=== PATIENT | female | born 1970 | race Caucasian/White ===

== ENCOUNTER 2016-06-22 05:03 | Observation (INO) | payer BC, OTHER ==
[2016-06-02 09:35] VITALS: BMI 27.0
[2016-06-22] VITALS (15 sets, daily range): BP systolic 104–138; BP diastolic 73–79; PULSE 61–87; TEMP 36.1–37; O2SAT 92–97; Ht 175.3 cm; Wt 84.1 kg
[~2016-06-22] VITALS: Ht 175.3 cm; Wt 84.1 kg
[2016-06-22] MEDS ORDERED: ACET-1311 PO (05:53)
[2016-06-22] MEDS ORDERED: CeleBREX 200 MG CAP PO SCH (06:00)
[2016-06-22] MEDS ORDERED: CEFAZOLIN 2000 MG/60 ML D5W IV SCH (06:00)
[2016-06-22] MEDS ORDERED: LACTATED RINGER'S 1000ML 1,000 ML IV SCH (06:00)
[2016-06-22] MEDS ORDERED: PREGABALIN 75 MG CAP PO SCH (06:00)
[2016-06-22] MEDS ORDERED: SUCCINYLCHOLINE CHLORIDE 20 MG/ML 10 ML VIAL IV ONE (06:45)
[2016-06-22] MEDS ORDERED: GLYCOPYRROLATE INJ 0.2 MG/ML VIAL ONE (06:45)
[2016-06-22] MEDS ORDERED: ROCURONIUM BROMIDE 10 MG/ML 5 ML VIAL ONE (06:45)
[2016-06-22] MEDS ORDERED: ONDANSETRON INJ 2 MG/ML 2 ML VIAL ONE (06:45)
[2016-06-22] MEDS ORDERED: DEXAMETHASONE SOD INJ 4 MG/ML VIAL ONE (06:45)
[2016-06-22] MEDS ORDERED: FENTANYL CITRATE INJ 50 MCG/1 ML 2 ML VIAL ONE ×3 (06:45→09:22)
[2016-06-22] MEDS ORDERED: PROPOFOL IV EMULSION 10 MG/ML 20 ML VIAL IV ONE (06:45)
[2016-06-22] MEDS ORDERED: EpHEDrine SULFATE INJ 50 MG/ML AMP ONE (06:45)
[2016-06-22] MEDS ORDERED: PHENYLEPHRINE HCL INJ 10 MG/ML VIAL ONE (06:45)
[2016-06-22] MEDS ORDERED: LIDOCAINE HCL 2% 2 ML VIAL (20MG/ML) ONE (06:45)
[2016-06-22] MEDS ORDERED: NEOSTIGMINE METHYLSULFATE 5 MG/5 ML SYR ONE (06:45)
[2016-06-22] MEDS ORDERED: MIDAZOLAM HCL 1 MG/ML 2ML VIAL ONE (06:45)
[2016-06-22] MEDS ORDERED: ONDANSETRON INJ 2 MG/ML 2 ML VIAL IV PRN ×2 (07:00→09:15)
[2016-06-22] MEDS ORDERED: ATROPINE SULFATE 0.1 MG/ML 5ML SYR IV PRN (07:00)
[2016-06-22] MEDS ORDERED: EpHEDrine SULFATE INJ 50 MG/ML AMP IV PRN (07:00)
[2016-06-22] MEDS ORDERED: MoRPHine SULFATE 10 MG/ML CARP/VIAL IV PRN (07:00)
[2016-06-22] MEDS ORDERED: BACITRACIN 50000 UNIT VIAL ONE (07:02)
[2016-06-22] MEDS ORDERED: THROMBIN 5000 UNITS KIT ONE (07:02)
--- NOTE | 2016-06-22 07:22 | History and Physical ---
History & Physical Date Jun 22, 2016. Chief Complaint neck pain and L arm pain/numbness History of Present Illness The patient is a 45 year old female with complaints of above for years. MRI shows cervical stenosis C4-6. No myelopathic symptoms. failed outpatient treatment. no weakness. Past Medical/Surgical History shoulder surgery BTL UE periph neuropathy smoker Additional History Hepatic Disease: No Endocrine Disorder: No Kidney Disease: No Hypertension: No Heart Disease: No Bleeding Tendencies: No Infectious Diseases: No Allergies Coded Allergies: Amitriptyline (Verified Allergy, Mild, CHRONIC FATIGUE, 06/22/16) Ibuprofen (Verified Allergy, Mild, VOMIT, 06/22/16) Sumatriptan (Verified Allergy, Mild, HEART RACES, 06/22/16) Home Medications Scheduled Acetaminophen (Tylenol), 650 MG PO prn Physical Examination Skin: warm/dry Eyes: normal inspection, sclerae normal ENT: normal ENT inspection Head: normocephalic, atraumatic Neck: supple, trachea midline Respiratory/Chest: lungs clear, no respiratory distress Cardiovascular: regular rate, rhythm Back: normal inspection Extremities: normal inspection Neurologic/Psych: no motor/sensory deficits, alert, normal reflexes, oriented x 3 Diagnosis C4-6 stenosis/DDD Plan of Treatment C4-6 ACDF
[2016-06-22] MEDS ORDERED: LARYING-O-JET KIT (LTA) EXT ONE ×2 (08:10)
[2016-06-22] MEDS ORDERED: FLOSEAL HEMOSTATIC MATRIX 5ML TOP ONE (09:03)
--- NOTE | 2016-06-22 09:03 | [facility] Post Operative Brief Note ---
Immediate Operative Summary Operative Date Jun 22, 2016. Pre-Operative Diagnosis C4 - C6 Stenosis; Degenerative Disc Disease Post-Operative Diagnosis C4 - C6 Stenosis; Degenerative Disc Disease Procedure(s) Performed C4-C6 Anterior Cervical Discectomy and Fusion with PEEK Surgeon Dr. Paco Graff Installer Apprentice Surgeon(s) Cristóbal Feliz PA-C Estimated Blood Loss 10ML Findings dict Specimens none per surgeon Dr. Paco Graff
[2016-06-22] MEDS ORDERED: OXYC-57 PO (09:13)
--- NOTE | 2016-06-22 09:14 | Discharge Instructions ---
Discharge Instructions Admission Reason for Admission: Cervical Spinal Stenosis Discharge Discharge Diagnosis / Problem: cervical stenosis Discharge Goals Goal(s): Decrease discomfort, Improve function, Increase independence Activity Recommendations Activity Limitations: as noted below Lifting Limitations: no more than 5 pounds Exercise/Sports Limitations: until after follow-up appointment May Resume Sexual Activity: after follow-up appointment Shower/Bathe: may shower/bathe in 3 days . Instructions / Follow-Up Instructions / Follow-Up ACTIVITY RECOMMENDATIONS: SELF CARE INSTRUCTIONS AFTER CERVICAL FUSIONS 1. No smoking. Smoking drastically decreases the chance of a solid fusion. 2. No bending, lifting more than 5 pounds, or twisting (roll like a log when turning in bed). 3. You may shower 3 days after surgery. Thoroughly dry wound. Do not soak in the tub. 4. Cervical collar: Must be worn at all times including sleeping. You may remove the brace only to bath, eat and if you are sitting in a recliner. 5. Please walk as much as you can for exercise. Gradually increase the distance that you walk as your endurance increases. SPECIAL CARE INSTRUCTIONS: VERY IMPORTANT TO READ AND REVIEW A. Do not take any anti-inflammatory medications (i.e. Indocin, Advil, Aspirin, Naprosyn, Aleve, Motrin, etc.) as these may inhibit the chance of a solid fusion. Tylenol is okay to take. B. Your surgical incision has been closed with a cosmetic suture under the skin that will dissolve in about 6 weeks. In 14 days, you can use a pair of clean scissors and cut the suture that is left outside of the skin at the ends of your incision. C. Complications are uncommon, but please contact us if you have any signs or symptoms of: 1. wound infection (fever higher than 102.5 degrees F, redness, separation of wound, drainage, or increasing pain from the incision) 2. blood clots in legs (pain, swelling, redness and warmth in legs) 3. urinary tract infection (fever higher than 102.5 degrees, burning upon urination or increased frequency of urination) 4. nerve problems (inability to walk on your toes or heels, numbness, loss of bowel or bladder control) 5. any other symptoms that concern you. D. Please call the office at if you have any concerns or questions about your operation or recovery. MANAGING PAIN AFTER SPINAL SURGERY 1. Narcotic medication is intended for short-term use and will be provided for surgical pain. Surgical pain usually lasts for a period of 4-6 weeks. Narcotic medication includes Percocet, Vicodin, Darvocet, Tylenol #3 or Lortab. 2. Longer-term pain is more appropriately treated with non-narcotic medication such as Tylenol ES. 3. Muscle spasm is not appropriately treated with narcotics. Muscle relaxers such as Soma, Flexeril or Skelaxin can be used along with Tylenol ES. 4. Remember that we all live with some "aches and pains". This is not unusual or uncommon after an injury or as we get older. 5. We will provide appropriate medication within the normal guidelines of their prescribed use. We will also be very cautious and aware of potential abuse and extended duration of patients' medication needs. 6. Please allow 2-3 days to process refills. Prescriptions will not be mailed but must be picked up at the office. FOLLOW UP VISIT: Keep your scheduled follow-up appointment. Any questions, please call the office at . Current Hospital Diet Patient's current hospital diet: Clear Liquid Diet Discharge Diet Recommended Diet: Regular Diet Procedures Procedures Performed: C4-C6 Anterior Cervical Discectomy and Fusion with PEEK Pending Studies Studies pending at discharge: no Medical Emergencies . Who to Call and When: Medical Emergencies: If at any time you feel your situation is an emergency, please call 911 immediately. . Non-Emergent Contact Non-Emergency issues call your: Surgeon Call Non-Emergent contact if: temperature is above 101, your pain is not controlled, your pain is worsening, your pain is unusual for you, your pain is concerning you, wound has increased drainage, wound has increased redness, wound has increased pain, you have any medication questions . "Provider Documentation" section prepared by Kendall Feliz. VTE Core Measure Inpt VTE Proph given/why not?: Sara Hernandez
[2016-06-22] MEDS ORDERED: ACETAMINOPHEN IV 1,000 MG in EMPTY BAG 0 ML IV PRN (09:15)
[2016-06-22] MEDS ORDERED: LORAZEPAM INJ 0.5 MG in SYRINGE 0.75 ML IV PRN (09:15)
[2016-06-22] MEDS ORDERED: RACEPINEPHRINE 2.25% NEBU SOLN 0.5 ML VIAL INH PRN (09:15)
[2016-06-22] MEDS ORDERED: NALOXONE HCL 0.4 MG/1 ML VIAL/CARP IV PRN (09:15)
[2016-06-22] MEDS ORDERED: LORAZEPAM 0.5 MG TAB PO PRN (09:15)
[2016-06-22] MEDS ORDERED: DEXAMETHASONE INJ 8 MG in SYRINGE 0 ML IV PRN (09:15)
[2016-06-22] MEDS ORDERED: HYDROmorphone INJ 1 MG/ML SYR IV PRN (09:15)
[2016-06-22] MEDS: FENTANYL CITRATE INJ 50 MCG/1 ML 2 ML VIAL IV PRN ×4 (09:40→10:10)
--- NOTE | 2016-06-22 09:43 | DIAGNOSTIC IMAGING REPORT ---
INTRAOPERATIVE FLUOROSCOPIC IMAGES OF THE CERVICAL SPINE CLINICAL HISTORY: ACDF C4-6 COMPARISON STUDY: MRI the cervical spine May 12, 2016. Fluoroscopy time: 14.6 seconds. FINDINGS: 2 fluoroscopic images demonstrate findings consistent with C4-C5 and C5-C6 anterior discectomy and fusion. Hardware is intact. Endotracheal and nasogastric tubes are partially imaged. Surgical drain is in place. IMPRESSION: Expected findings following C4-C6 anterior discectomy and fusion. Electronically signed by: Lincoln Gomez M.D. 06/22/2016 9:41 AM Dictated Date/Time: 06/22/2016 9:40 AM
--- NOTE | 2016-06-22 10:08 | OPERATIVE REPORT ---
DATE OF OPERATION: 06/22/2016 PREOPERATIVE DIAGNOSES: 1. Cervical stenosis C4-C5 and C5-C6. 2. Cervical disc degeneration C4-C5 and C5-C6. POSTOPERATIVE DIAGNOSIS: Same. PROCEDURES: 1. Anterior cervical discectomy and fusion with application of PEEK intervertebral spacer with local autograft and DBM putty C4-C5. 2. Anterior cervical discectomy and fusion with application of PEEK intervertebral spacer with local autograft and DBM putty C5-C6. 3. Anterior cervical instrumentation C4-C5 and C5-C6 with LDR anterior cervical blade plates. SURGEON: Dr. Graff. CHEMICAL LABORATORY ASSISTANT: Kendall Feliz PA-C. Please note he participated in all portions of the procedure and was critical for performance of procedure, participated in positioning, prepping, draping, retraction and wound closure. ANESTHESIA: General endotracheal anesthesia. COMPLICATIONS: None. ESTIMATED BLOOD LOSS: Minimal. OPERATION AND FINDINGS: PROCEDURE: After identification of patient and operative level, she was brought to the OR where she underwent induction of general anesthesia. She was then positioned supine on the [facility] OR table with all bony prominences well padded. The arms were tucked at sides and well padded. Shoulders were taped distally and the anterior neck was sterilely prepped and draped in usual fashion. Antibiotics were administered. Time-out was performed. Level was confirmed and transverse skin incision was made on the right side of the neck at the level of the cricoid cartilage. I divided the platysma in line with the incision and performed routine anterior cervical exposure with blunt dissection. I identified the presumptive disc spaces with fluoroscopy and marked level with electrocautery and mobilized the longus colli. I placed a self-retaining cervical retractor and then put Ionia pins in the bodies of C4 and C6. Distraction was applied. Level was reconfirmed with fluoroscopy. I then proceeded to do a complete discectomy at C4-C5 and complete discectomy at C5-C6. I took down the posterior osteophytes with a cristian at each level and then removed posterior annulus and PLL at each level. Foraminotomies were performed as necessary and I palpated the nerve roots were decompressed bilaterally. I then decorticated the endplates at C4-C5 and C5-C6 with a high speed cristian and then determined graft size with trial sizers. PEEK cages were filled with local bone and DBM putty, tamped into position at C4-C5 and C5-C6. I then released the distraction and placed the blade plates into each of the cages to anchor them in the vertebral bodies of C4-C5 and C5-C6. I then irrigated with bacitracin solution, obtained final x-rays, confirmed hemostasis, removed the Ionia distraction, applied bone wax over the holes and then closed over a small round drain. All sponge and needle counts were correct at the end of the case. I attest to the content of the Intraoperative Record and any orders documented therein. Any exceptio ns are noted below.
--- NOTE | 2016-06-22 11:56 | Anesthesiology Progress Note ---
Anesthesia Post Op Note Date & Time Jun 22, 2016 at 11:56 Vital Signs Pain Intensity: 1 Vital Signs Past 12 Hours Date Time Temp Pulse Resp B/P Pulse Ox O2 Delivery O2 Flow Rate FiO2 06/22/16 11:31 66 20 06/22/16 11:31 66 20 98 06/22/16 11:28 126/88 06/22/16 11:26 60 18 98 06/22/16 11:26 59 18 06/22/16 11:23 128/92 06/22/16 11:21 67 18 98 06/22/16 11:21 72 18 06/22/16 11:18 149/69 06/22/16 11:16 60 14 06/22/16 11:16 64 14 100 06/22/16 11:13 130/79 06/22/16 11:11 55 17 98 06/22/16 11:11 56 17 06/22/16 11:08 135/84 06/22/16 11:06 60 18 98 06/22/16 11:06 60 18 06/22/16 11:05 36.5 70 17 06/22/16 11:05 71 17 99 06/22/16 11:03 120/72 06/22/16 11:00 62 18 06/22/16 11:00 61 18 98 06/22/16 10:58 123/87 06/22/16 10:55 60 16 06/22/16 10:55 59 16 98 06/22/16 10:53 129/85 06/22/16 10:50 59 19 06/22/16 10:50 59 19 98 06/22/16 10:48 117/85 06/22/16 10:45 58 9 06/22/16 10:45 58 9 96 06/22/16 10:43 128/89 06/22/16 10:40 54 12 06/22/16 10:40 54 12 95 06/22/16 10:39 140/76 06/22/16 10:35 67 17 06/22/16 10:35 65 17 98 06/22/16 10:34 138/98 06/22/16 10:30 78 18 06/22/16 10:30 74 18 96 06/22/16 10:28 135/84 06/22/16 10:25 59 16 98 06/22/16 10:25 59 16 06/22/16 10:23 121/91 06/22/16 10:20 59 18 98 06/22/16 10:20 60 18 06/22/16 10:19 64 14 99 06/22/16 10:19 63 14 06/22/16 10:18 118/80 06/22/16 10:14 59 19 06/22/16 10:14 58 19 97 06/22/16 10:13 128/73 06/22/16 10:09 76 16 96 06/22/16 10:09 73 16 06/22/16 10:08 130/79 06/22/16 10:04 57 21 06/22/16 10:04 56 21 97 06/22/16 10:03 122/87 06/22/16 09:59 91 16 99 06/22/16 09:59 88 16 06/22/16 09:58 137/88 06/22/16 09:54 83 18 06/22/16 09:54 84 18 100 06/22/16 09:53 120/76 06/22/16 09:50 Nasal Cannula 4 06/22/16 09:49 56 19 06/22/16 09:49 56 19 96 06/22/16 09:48 130/103 06/22/16 09:44 53 19 06/22/16 09:44 52 19 96 06/22/16 09:43 123/77 06/22/16 09:39 65 15 98 06/22/16 09:39 64 15 06/22/16 09:38 132/89 06/22/16 09:35 60 16 99 06/22/16 09:35 60 16 06/22/16 09:33 138/93 06/22/16 09:30 82 17 06/22/16 09:30 83 17 99 06/22/16 09:29 130/92 06/22/16 09:28 137/92 06/22/16 09:25 81 16 135/80 97 Mask 10 06/22/16 09:15 36.3 87 16 126/78 95 Mask 10 06/22/16 05:35 36.6 61 20 104/73 97 Room Air Notes Mental Status: alert / awake / arousable, participated in evaluation Pt Amnestic to Procedure: Yes Nausea / Vomiting: adequately controlled Pain: adequately controlled Airway Patency, RR, SpO2: stable & adequate BP & HR: stable & adequate Hydration State: stable & adequate Anesthetic Complications: no major complications apparent
[2016-06-22] MEDS ORDERED: MoRPHine SULFATE 10 MG/ML CARP/VIAL ONE (13:13)
[2016-06-22] MEDS ORDERED: IV FLUIDS COMPLETED PRN (14:15)
[2016-06-22] MEDS: SODIUM CHLORIDE 0.9% 1000ML 1,000 ML IV SCH ×2 (15:38→21:37)
[2016-06-22] MEDS: CHECK SCOPOLAMINE PATCH PLACEMENT SCH ×2 (15:39→23:22)
[2016-06-22] MEDS: DEXAMETHASONE INJ 6 MG in SYRINGE 0 ML IV SCH ×2 (15:39→23:22)
[2016-06-22] MEDS: CEFAZOLIN IV 1,000 MG in DEXTROSE 5% 50ML 50 ML IV SCH ×2 (15:39→23:21)
[2016-06-22] MEDS ORDERED: SCOPOLAMINE 1.5 MG TDSY TD SCH (16:00)
[2016-06-22] MEDS: OXYCODONE HCL IR 5 MG TAB (IMMEDIATE RELEASE) PO PRN ×2 (17:59→22:19)
[2016-06-22] MEDS ORDERED: NURSING VERBAL MED ORDER ONE (22:30)
[2016-06-22] MEDS: CALCIUM CARBONATE 500 MG CHEWABLE PO PRN (23:25)
[2016-06-22] MEDS ORDERED: ACETAMINOPHEN IV 100 ML IV PRN (23:30)
[2016-06-23] VITALS (9 sets, daily range): BP systolic 116–128; BP diastolic 66–76; PULSE 73–88; TEMP 36.8–37.2; O2SAT 93–96
[2016-06-23] MEDS: CALCIUM CARBONATE 500 MG CHEWABLE PO PRN ×2 (03:18→10:32)
[2016-06-23] MEDS: DEXAMETHASONE INJ 6 MG in SYRINGE 0 ML IV SCH (08:00)
[2016-06-23] MEDS: CHECK SCOPOLAMINE PATCH PLACEMENT SCH (08:00)
[2016-06-23] MEDS: CEFAZOLIN IV 1,000 MG in DEXTROSE 5% 50ML 50 ML IV SCH (08:42)
--- NOTE | 2016-07-06 09:22 | DISCHARGE SUMMARY ---
PRINCIPAL DIAGNOSIS: Included cervical stenosis C4-C5, cervical disc degeneration C4-C5, C5-C6. POSTOPERATIVE DIAGNOSIS: Same. PROCEDURE: ACDF C4-C5, C5-C6. SURGEON: Dr. Paco Graff. VALIDATION TECHNICIAN: Kendall Feliz PA-C. HISTORY OF PRESENT ILLNESS: Please refer to EMR. HOSPITAL COURSE: On 06/22/2016 Ms. Dunbar was admitted to [facility] with the above diagnosis. She was taken to preoperative holding where she was identified, evaluated and cleared for surgical procedure. She was transported to the operating room, introduced with general endotracheal anesthesia, sterile conditions were set and she successfully underwent the above procedure without complication or issue. She was awakened in stable and satisfactory condition and transported to postoperative recovery. Here her pain and vital signs were monitored and properly managed. There were no medical issues to note, the patient remained stable. She was then taken to the orthopedic floor for continued postoperative care. Throughout her stay, she had no difficulty breathing or swallowing. Incision remained intact. SIERRA was functioning. Immobilization was in place. Pain was well controlled. DVT and GI prophylactic measures were taken. There were no iatrogenic issues or postoperative surgical complications to note. She was evaluated on the morning of 06/23/2016 and indicated for return home. On this date, she was discharged from [facility]. DISPOSITION: Home. DISPOSITION CONDITION: Stable. NOTED COMPLICATIONS OR ISSUES: Zero. DISCHARGE INSTRUCTIONS: Please refer to EMR.
[2016-11-24] MEDS ORDERED: AMOX875T3 PO (08:51)
[2016-12-01] MEDS ORDERED: OXYC-57 PO (10:59)
== END 2016-06-23 12:19 | disposition home or self-care (01) ==
LOC: ENRESERVTM → ENRESERVDT → C.ACU 05:03 → C.3E 09:05
PROVIDERS: ADMIT Orthopaedic Surgery Orthopaedic Surgery of the Spine; ATTEND Orthopaedic Surgery Orthopaedic Surgery of the Spine
DX: M48.02 Spinal stenosis, cervical region (principal); M50.321 Other cervical disc degeneration at C4-C5 level; M50.322 Other cervical disc degeneration at C5-C6 level; G62.9 Polyneuropathy, unspecified; F17.210 Nicotine dependence, cigarettes, uncomplicated

== ENCOUNTER 2016-10-15 22:49 | Emergency (ER) | payer OTHER ==
[~2016-10-15] VITALS: Ht 175.3 cm; Wt 90.6 kg
[~2016-10-15 22:49] MED LIST: ACET-1311 PO; OXYC-57 PO
[2016-10-15 22:58] VITALS: TEMP 36.6; Ht 175.3 cm; Wt 90.6 kg
[2016-10-15] MEDS ORDERED: RANITIDINE HCL 150 MG TAB PO ONE (23:30)
--- NOTE | 2016-10-15 23:30 | EMERGENCY ROOM VISIT NOTE ---
History Report prepared by Cliveibmadhavi: Amanda Dunlap Under the Supervision of: Dr. Ekaterina Richards D.O. First contact with patient: 23:04 Chief Complaint: ILLNESS Stated Complaint: ALLERGIES, COUGHING, SWELLING OF EYES History of Present Illness The patient is a 46 year old female who presents to the Emergency Room with complaints of intermittent facial swelling starting a few days ago. She denies any facial pain. The patient reports having swelling of eyes, sinuses, and throat which only occurs at night. The swelling improves at night. She also complains of sinus drainage which results in coughing. She reports rib pain from coughing. She was evaluated at [facility] for her current symptoms and she was prescribed Augmentin without relief for suspected sinusitis. The patient recently discovered black mold in her house which is now being cleaned up. Her symptoms had initially improved when she was staying out of the house but she started having swelling today on her way to a hotel. She denies keeping her windows open but the air conditioner has been running in the house for the past few days. The patient does not take any medications. She denies any new medications. She did not use any new laundry detergents or wear any new clothes. She denies any hives or rashes. She is a current smoker. Source of History: patient Onset: a few days ago Position: other (Face) Quality: other (swelling) Timing: intermittent Modifying Factors (Relieving): other (Augmentin without relief) Associated Symptoms: + cough, No rash Review of Systems See HPI for pertinent positives & negatives. A total of 10 systems reviewed and were otherwise negative. Past Medical & Surgical Medical Problems: (1) Bronchitis (2) Bronchopneumonia (3) DDD (degenerative disc disease), cervical Family History Patient reports no known family medical history. Social History Smoking Status: Current Every Day Smoker Marital Status: Occupation Status: unemployed Current/Historical Medications Scheduled Methylprednisolone (Medrol Dosepak), 1 PKT PO UD Allergies Coded Allergies: Amitriptyline (Verified Allergy, Mild, CHRONIC FATIGUE, 10/15/16) Ibuprofen (Verified Allergy, Mild, VOMIT, 10/15/16) Sumatriptan (Verified Allergy, Mild, HEART RACES, 10/15/16) Physical Exam Vital Signs Date Time Temp Pulse Resp B/P (MAP) Pulse Ox O2 Delivery O2 Flow Rate FiO2 10/16/16 00:19 84 18 120/64 96 10/15/16 22:58 36.6 96 18 122/66 95 Room Air Physical Exam HEENT: Head - normocephalic and atraumatic Pupils are equal, round, and reactive to light. Extraocular eye muscles are intact, and sclera are anicteric. Eye lid edema. Nose - moist nasal mucosa without discharge. Mouth - moist buccal mucosa. Oropharynx is nonerythematous and there is no tonsillar exudate or edema noted. Neck: Supple; no JVD, nuchal rigidity, cervical lymphadenopathy. Heart: Regular rate and rhythm. There is a normal S1 and S2 with no murmurs, clicks, or gallops appreciated. Lungs: Clear to auscultation bilaterally with no wheezes, rales, or rhonchi. Lung sounds are diminished in all lung gonzalez. Abdomen: Soft, completely nontender, nondistended, with good bowel sounds. There are no palpable pulsatile masses or hepatosplenomegaly. There is no guarding, rigidity, or rebound noted. Extremities: No evidence of cyanosis, clubbing, or edema. There are easily palpable peripheral pulses. Skin: warm and dry with good turgor and no rashes. Medical Decision & Procedures ER Provider Diagnostic Interpretation: X-ray results as stated below per interpretation by me: TWO VIEW CHEST X-RAY No pulmonary infiltrate or consolidation. Medications Administered Medications (Trade) Dose Ordered Sig/Mannie Route Start Time Stop Time Status Last Admin Dose Admin Diphenhydramine HCl (Benadryl Cap) 50 mg NOW ONCE PO 10/15/16 23:30 10/15/16 23:31 DC 10/15/16 23:30 50 MG Ranitidine HCl (zANTac TAB) 150 mg NOW ONCE PO 10/15/16 23:30 10/15/16 23:31 DC 10/15/16 23:31 150 MG Procedure Ranitidine HCl 150 mg PO, Benadryl Cap 50 mg PO ED Course 2304: Past medical records reviewed. The patient was evaluated in room B04B. A complete history and physical exam was performed. I attest that I have personally reviewed the patient's current medication list. 2330: Ranitidine HCl 150 mg PO, Benadryl Cap 50 mg PO 0010: Upon reevaluation, the patient is feeling better. I discussed findings and results with her. She verbalized agreement of the treatment plan. She was discharged home. Patient was found to have an elevated blood pressure and was referred to their primary doctor for recheck and further treatment. The patient was encouraged to stop smoking. Medical Decision The patient presents to the Emergency Room with complaints of facial swelling. Differential diagnosis includes but is not limited to seasonal allergies, acute allergic reaction, sinusitis. We spent a great deal time talking about possible allergens or offending agents. The patient got moderate relief of her symptoms from Benadryl and Zantac. I did prescribe a Medrol Dosepak for the patient to start if she developed any worsening symptoms. Impression Primary Impression: Allergic reaction Scribe Attestation The scribe's documentation has been prepared under my direction and personally reviewed by me in its entirety. I confirm that the note above accurately reflects all work, treatment, procedures, and medical decision making performed by me. Departure Information Dispostion Home / Self-Care Prescriptions Methylprednisolone (MEDROL DOSEPAK) 4 Mg Nato 1 PKT PO UD for 6 Days, #1 PKT Prov: Ekaterina Richards D.O. 10/15/16 Referrals No Doctor, Assigned (PCP) Forms HOME CARE DOCUMENTATION FORM, IMPORTANT VISIT INFORMATION, WORK / SCHOOL INSTRUCTIONS Patient Instructions ED Allergic Reaction General Other, My [facility] Additional Instructions Take benadryl - 50mg every 6 hours take zantac - 75 mg every 6 hours along with the benadryl. If symptoms not improving, start steroid taper Go to the closest ER if you develop any worsening shortness of breath or allergy symptoms Problem Qualifiers Primary Impression: Allergic reaction Encounter type: initial encounter Qualified Codes: T78.40XA - Allergy, unspecified, initial encounter
--- NOTE | 2016-10-15 23:44 | DIAGNOSTIC IMAGING REPORT ---
TWO VIEW CHEST CLINICAL HISTORY: Cough. FINDINGS: PA and lateral chest radiographs are obtained. No prior studies are available for comparison at the time of dictation. The cardiomediastinal silhouette is unremarkable. Prominent epicardial pad is noted at the medial right lung base. There is minimal atelectasis at the left lung base. The lungs and pleural spaces are otherwise clear. There is no pneumothorax. The bony thorax appears intact. Orthopedic hardware is partially imaged in the lower cervical spine. IMPRESSION: No active disease in the chest. Electronically signed by: Henrik Mckeon M.D. 10/15/2016 11:43 PM Dictated Date/Time: 10/15/2016 11:42 PM
[2016-10-15] MEDS ORDERED: METH4PAK PO (23:54)
[2016-10-16 00:19] VITALS: BP 120/64; PULSE 84; O2SAT 96
[2016-11-24] MEDS ORDERED: AMOX875T3 PO (08:51)
[2016-12-01] MEDS ORDERED: OXYC-57 PO (10:59)
[2017-03-14] MEDS ORDERED: VNTHFA/IN INH (08:48)
== END 2016-10-16 00:20 | disposition home or self-care (01) ==
LOC: C.EDB 22:51
DX: T78.40XA Allergy, unspecified, initial encounter (principal); R22.0 Localized swelling, mass and lump, head; R05 Cough; R07.81 Pleurodynia; Z87.09 Personal history of other diseases of the respiratory system; F17.200 Nicotine dependence, unspecified, uncomplicated; X58.XXXA Exposure to other specified factors, initial encounter

== ENCOUNTER 2016-10-25 20:24 | Emergency (ER) | payer OTHER ==
[~2016-10-25] VITALS: Ht 175.3 cm; Wt 88.4 kg
[2016-10-25 20:35] VITALS: TEMP 36.8; Ht 175.3 cm; Wt 88.4 kg
--- NOTE | 2016-10-25 21:37 | DIAGNOSTIC IMAGING REPORT ---
CHEST ONE VIEW PORTABLE CLINICAL HISTORY: Atypical chest pain. Cough. COMPARISON STUDY: No previous studies for comparison. FINDINGS: The cardiac and mediastinal contours remain stable. There is a stable prominent right cardiophrenic angle fat pad. There is no failure. There is no lobar consolidation. There is stable left basilar atelectasis/scarring. No pleural effusions are visualized.[ IMPRESSION: No active disease in the chest. Electronically signed by: Varinder Avelar M.D. 10/25/2016 9:36 PM Dictated Date/Time: 10/25/2016 9:35 PM
[2016-10-25 21:53] LABS: HEMATOCRIT 43.3 % (37-47); MEAN CELL VOLUME 92.1 fL (80-100); MEAN CORPUSCULAR HEMOGLOBIN 30.6 pg (25-34); MEAN CORPUSCULAR HGB CONC 33.3 g/dl (32-36); MEAN PLATELET VOLUME 10.1 fL (7.4-10.4); PLATELET COUNT 234 K/uL (130-400); WHITE BLOOD COUNT 13.36 K/uL (4.8-10.8)
[2016-10-25 22:13] LABS: COMPLETE YES; LYMPH ABS # 6.16 K/uL (1.2-3.4); LYMPHOCYTE % 46.1 %; NEUTROPHILS % 37.4 %; VARIANT LYM ABS # 1.63 K/uL; VARIANT LYMPHOCYTE % 12.2 %
[2016-10-25 22:17] LABS: ALT/SGPT 55 U/L (12-78); BLOOD UREA NITROGEN 14 mg/dl (7-18); BUN/CREATININE RATIO 17.3 (10-20); CARBON DIOXIDE 24 mmol/L (21-32); CHLORIDE 108 mmol/L (98-107); GLUCOSE 97 mg/dl (70-99); POTASSIUM 3.8 mmol/L (3.5-5.1); SODIUM 143 mmol/L (136-145)
[2016-10-25 22:20] LABS: ALKALINE PHOSPHATASE 49 U/L (45-117); AST/SGOT 30 U/L (15-37)
[2016-10-25 22:26] LABS: CALCIUM 8.3 mg/dl (8.5-10.1)
[2016-10-26] MEDS ORDERED: AZITTAB PO (00:13)
[2016-10-26] MEDS ORDERED: AZITHROMYCIN 250 MG TAB PO ONE (00:15)
--- NOTE | 2016-10-26 00:19 | EMERGENCY ROOM VISIT NOTE ---
History Report prepared by Yaima: Tamar Feliciano Under the Supervision of: Dr. Pepe White M.D. First contact with patient: 21:07 Chief Complaint: COUGH Stated Complaint: COUGH THAT WONT GO AWAY Nursing Triage Summary: Pt has had a cough for the pt month. Pt was seen in the ED and was told she was having an allergic reaction. Pt was administered prednisone and has finished that treatement. Pt states that the cough has not gotten any better. Cough is productive at times with clear/white sputum. Pt still smokes daily. Pt also states she is having SOB. History of Present Illness The patient is a 46 year old female who presents to the Emergency Room with complaints of persistent cough starting 1 month ago. Her cough has not improved over the past month. She has pain in her right ribs which worsens when she exhales. She reports feeling a knot in her throat and feeling very congested. The knot in her throat seems to improve after she coughs up the congestion. She is coughing up a white sputum. She states that the problem seems to be in her throat and not in her lungs. She has been vomiting because she is coughing very hard. She was seen in the ED previously and was started and prednisone and Augmentin. She was told that it might be allergies. She has not been taking the Augmentin because it made her vomit. She has difficulty taking medications because they make her vomit. She has a history of H pylori. She reports left ear pain. She denies any chest pain, fever, itching, rash, or sore throat. She is not on any medications. She denies any history of diabetes, lung problems, environmental allergies, or heart problems. She is a smoker. She has recently been exposed to black mold in her house. Source of History: patient, family, spouse/significant other Onset: 1 month ago Position: other (global) Quality: other (cough) Timing: other (persistent) Associated Symptoms: + vomiting Note: Pt reports knot in throat, congestion, right rib pain. Review of Systems See HPI for pertinent positives & negatives. A total of 10 systems reviewed and were otherwise negative. Past Medical & Surgical Medical Problems: (1) Bronchitis (2) Bronchopneumonia (3) DDD (degenerative disc disease), cervical Old medical records were reviewed. Nurse's notes were reviewed and I agree with. Family History Patient reports no known family medical history. Social History Smoking Status: Current Every Day Smoker Marital Status: Occupation Status: unemployed Current/Historical Medications Scheduled Azithromycin (Zithromax Z-Nato), 0 PO UD Allergies Coded Allergies: Amitriptyline (Verified Allergy, Mild, CHRONIC FATIGUE, 10/25/16) Ibuprofen (Verified Allergy, Mild, VOMIT, 10/25/16) Sumatriptan (Verified Allergy, Mild, HEART RACES, 10/25/16) Nortriptyline (Unverified Allergy, Unknown, "WACKY/HEART RATE INCREASES", 10/25/16) Physical Exam Vital Signs Date Time Temp Pulse Resp B/P (MAP) Pulse Ox O2 Delivery O2 Flow Rate FiO2 10/26/16 00:40 65 20 121/77 97 Room Air 10/25/16 22:28 78 20 121/75 96 Room Air 10/25/16 20:44 95 Room Air 10/25/16 20:35 36.8 85 18 115/76 95 Room Air Physical Exam General: Non ill appearing middle age female. Well developed well nourished in no acute distress, breathing comfortably on room air. Normal speech HEENT: Normal cephalic atraumatic. Pupils are equal round and reactive to light. Extraocular movements are intact. Oropharynx is pink with moist mucous membranes. No swelling of the mouth lips or tongue. Neck: Supple with a midline trachea. No meningeal signs or stiffness, no JVD or bruits. No Stridor. Chest: Clear to auscultation bilaterally. No wheezes or rhonchi. No increased work of breathing. Tender to palpation in the right anterior ribs, no rash. Heart: regular rate and rhythm. Abdomen: Soft nontender, nondistended without rebound guarding or rigidity. Extremities: No cyanosis clubbing or edema. No calf tenderness or assymetry Spine/Back. Non tender to palpation. No CVA tenderness Skin: Good turgor without rashes. Neurologic exam: Cranial nerves two through 12 are intact. Motor and sensation are intact and symmetrical throughout. Medical Decision & Procedures ER Provider Diagnostic Interpretation: X-ray results as stated below per interpretation by me and the radiologist: CHEST ONE VIEW PORTABLE CLINICAL HISTORY: Atypical chest pain. Cough. COMPARISON STUDY: No previous studies for comparison. FINDINGS: The cardiac and mediastinal contours remain stable. There is a stable prominent right cardiophrenic angle fat pad. There is no failure. There is no lobar consolidation. There is stable left basilar atelectasis/scarring. No pleural effusions are visualized.[ IMPRESSION: No active disease in the chest. Electronically signed by: Varinder Avelar M.D. 10/25/2016 9:36 PM Dictated Date/Time: 10/25/2016 9:35 PM Laboratory Results 10/25/16 21:43 Red Blood Count 4.70, Mean Corpuscular Volume 92.1, Mean Corpuscular Hemoglobin 30.6, Mean Corpuscular Hemoglobin Concent 33.3, Mean Platelet Volume 10.1 10/25/16 21:43 Test 10/25/16 21:43 10/25/16 21:49 White Blood Count 13.36 K/uL (4.8-10.8) Red Blood Count 4.70 M/uL (4.2-5.4) Hemoglobin 14.4 g/dL (12.0-16.0) Hematocrit 43.3 % (37-47) Mean Corpuscular Volume 92.1 fL (80-100) Mean Corpuscular Hemoglobin 30.6 pg (25-34) Mean Corpuscular Hemoglobin Concent 33.3 g/dl (32-36) Platelet Count 234 K/uL (130-400) Mean Platelet Volume 10.1 fL (7.4-10.4) RDW Standard Deviation 42.4 fL (36.4-46.3) RDW Coefficient of Variation 12.5 % (11.5-14.5) Neutrophils % (Manual) 37.4 % Lymphocytes % (Manual) 46.1 % Variant Lymphocytes % (manual) 12.2 % Monocytes % (Manual) 4.3 % Neutrophils # (Manual) 5.00 K/uL (1.4-6.5) Total Absolute Neutrophils 5.00 K/uL (1.4-6.5) Lymphocytes # (Manual) 6.16 K/uL (1.2-3.4) Absolute Variant Lymphocytes 1.63 K/uL Total Absolute Lymphocytes 7.79 K/uL (1.2-3.4) Monocytes # (Manual) 0.57 K/uL (0.11-0.59) Red Blood Cell Morphology Unremarkable Anion Gap 11.0 mmol/L (3-11) Est Creatinine Clear Calc Drug Dose 105.3 ml/min Estimated GFR () 103.2 Estimated GFR (Non- 89.0 BUN/Creatinine Ratio 17.3 (10-20) Calcium Level 8.3 mg/dl (8.5-10.1) Total Bilirubin 0.2 mg/dl (0.2-1) Direct Bilirubin < 0.1 mg/dl (0-0.2) Aspartate Amino Transf (AST/SGOT) 30 U/L (15-37) Alanine Aminotransferase (ALT/SGPT) 55 U/L (12-78) Alkaline Phosphatase 49 U/L (45-117) Total Protein 6.9 gm/dl (6.4-8.2) Albumin 3.9 gm/dl (3.4-5.0) Lipase 153 U/L (73-393) Bedside Troponin I < 0.030 ng/ml (0-0.045) Laboratory studies as stated above per my review. Medications Administered Medications (Trade) Dose Ordered Sig/Mannie Route Start Time Stop Time Status Last Admin Dose Admin Azithromycin (Zithromax Tab) 500 mg NOW ONCE PO 10/26/16 00:15 10/26/16 00:16 DC 10/26/16 00:19 500 MG ECG Indication: chest pain Rate (beats per minute): 78 Rhythm: normal sinus Findings: no acute ischemic change, no ectopy ED Course 2109: Past medical records reviewed. The patient was evaluated in room B9, and a complete history and physical examination were performed. 2355: Upon reevaluation, the patient is resting comfortably. I discussed the results and treatment plan with her. She verbalized agreement of the treatment plan. The patient was discharged home. 0015: Azithromycin 500 mg PO. Medical Decision Differentials include, but are not limited to; bronchitis, pneumonia, allergies , pneumothorax, rib contusion, PE. Medication Reconciliation: I attest that I have personally reviewed the patient' s current medication list. Blood pressure Screening: Patient was found to have normal blood pressure on screening and does not require follow-up. This patient comes in as described above. She was placed in room B9. She's had a persistent cough and she has right rib pain that hurts worse with palpation movement and cough. she thinks she broke her rib from coughing. It is definitely reproducible. She's not hypoxemic. Chest x-ray was obtained and does not show anything pneumothorax or any definite rib fractures or pneumonia. EKG does not suggest acute coronary syndrome or arrhythmia and her symptoms would be atypical for cardiac disease. She has no acute electrolyte or metabolic abnormalities. Her symptoms are atypical for pulmonary embolism and she tells me she cannot have a CAT scan with contrast as she has severe reaction. She fact is allergic or sensitive to most medications. She believes she is azithromycin Z-Nato before I'll put her on this. I talked about pain and cough medicine she says she really can't take anything but Tyleno. L she does not do well with the oral pain medication or NSAIDs. I told her to ensure that she does not take too much Tylenol and do not take more than 2 pills every 6 hours and do not take with other acetaminophen/Tylenol products. She is going to use Robitussin-DM for cough. She's done okay with this before she should rest and drink plenty fluids return if: increasing pain, worsening symptoms, fever or chills, any new problems or concerns. She is happy with plan and discharged to home. Impression Primary Impression: Rib pain on right side Additional Impression: Bronchitis Scribe Attestation The scribe's documentation has been prepared under my direction and personally reviewed by me in its entirety. I confirm that the note above accurately reflects all work, treatment, procedures, and medical decision making performed by me. Departure Information Dispostion Home / Self-Care Prescriptions Azithromycin (ZITHROMAX Z-NATO) 250 Mg Tab 0 PO UD, #1 PKT Prov: Pepe White M.D. 10/26/16 Referrals No Doctor, Assigned (PCP) Forms HOME CARE DOCUMENTATION FORM, IMPORTANT VISIT INFORMATION Patient Instructions My [facility] Additional Instructions Rest Drink plenty of fluids Use azithromycin Z-Nato as directedantibiotic For pain may use Tylenol/acetaminophen a maximum of 2 pills every 6 hours Do not take with any other medications that contain Tylenol/acetaminophen For cough may use the Robitussin-DM Return if: Increasing pain, worsening of symptoms, shortness of breath, fever or chills, any new problems or concerns Problem Qualifiers
[2016-10-26 00:40] VITALS: BP 121/77; PULSE 65; O2SAT 97
[2016-11-24] MEDS ORDERED: AMOX875T3 PO (08:51)
[2016-12-01] MEDS ORDERED: OXYC-57 PO (10:59)
[2017-03-14] MEDS ORDERED: VNTHFA/IN INH (08:48)
== END 2016-10-26 00:40 | disposition home or self-care (01) ==
LOC: C.EDB 20:25
DX: R07.81 Pleurodynia (principal); J40 Bronchitis, not specified as acute or chronic; M50.90 Cervical disc disorder, unspecified, unspecified cervical region; F17.210 Nicotine dependence, cigarettes, uncomplicated

== ENCOUNTER 2016-10-29 12:49 | Emergency (ER) | payer OTHER ==
[~2016-10-29] VITALS: Ht 175.3 cm; Wt 88.2 kg
[~2016-10-29 12:49] MED LIST changes: -ACET-1311 PO; +AZITTAB PO; -OXYC-57 PO
[2016-10-29 12:51] VITALS: TEMP 36.4; Ht 175.3 cm; Wt 88.2 kg
[2016-10-29] MEDS ORDERED: FENTANYL CITRATE INJ 50 MCG/1 ML 2 ML VIAL IV STA (13:06)
[2016-10-29] MEDS ORDERED: PSEUDOEPHEDRINE HCL 30 MG TAB PO STA (13:06)
[2016-10-29] MEDS ORDERED: ACET-1256 PO (13:18)
--- NOTE | 2016-10-29 13:23 | EMERGENCY ROOM VISIT NOTE ---
History Report prepared by Yaima: Mariana Langley Under the Supervision of: Dr. Brittney Alatorre M.D. First contact with patient: 12:56 Chief Complaint: RIB PAIN Stated Complaint: CRACKED RIB,COUGH History of Present Illness The patient is a 46 year old female who presents to the Emergency Room with complaints of persistent right rib pain that started 1 month ago. The patient states that she is also experiencing a cough and sinus drainage that feels like it is getting stuck in her throat. The patient states that she has been treated with Augmentin, prednisone, and a z-pack, but nothing has improved her symptoms. The patient's adds that the sinus drainage causes the patient to gag and cough. The cough is what originally caused her rib pain. The patient states that she gags after eating or drinking and occasionally vomits after gagging. She states that she has only taken Tylenol for the pain and is hesitant to take anything else. The patient adds that she has had her esophagus dilated in the past. Source of History: patient Onset: 1 month ago Position: chest (right ribs) Quality: other (right rib pain) Timing: other (persistent) Associated Symptoms: + cough, + vomiting (after gagging) Note: sinus drainage, gagging Review of Systems See HPI for pertinent positives & negatives. A total of 10 systems reviewed and were otherwise negative. Past Medical & Surgical Medical Problems: (1) Bronchitis (2) Bronchopneumonia (3) DDD (degenerative disc disease), cervical Family History Patient reports no known family medical history. Social History Smoking Status: Current Every Day Smoker Marital Status: Occupation Status: unemployed Current/Historical Medications Scheduled Azithromycin (Zithromax Z-Nato), 0 PO UD Cefdinir (Omnicef), 1 CAP PO BID Scheduled PRN Acetaminophen (Tylenol), 500 MG PO Q8 PRN for Pain Albuterol Sulfate (Proventil Hfa), 2 PUFFS INH Q4H PRN for cough, wheeze Pseudoephedrine (Sudafed), 60 MG PO Q6 PRN for congestion Allergies Coded Allergies: Amitriptyline (Verified Allergy, Mild, CHRONIC FATIGUE, 10/29/16) Ibuprofen (Verified Allergy, Mild, VOMIT, 10/29/16) Sumatriptan (Verified Allergy, Mild, HEART RACES, 10/29/16) Nortriptyline (Verified Adverse Reaction, Unknown, "WACKY/HEART RATE INCREASES", 10/29/16) Physical Exam Vital Signs Date Time Temp Pulse Resp B/P (MAP) Pulse Ox O2 Delivery O2 Flow Rate FiO2 10/29/16 14:30 81 20 111/79 93 10/29/16 14:00 86 10/29/16 13:59 87 20 127/86 94 Room Air 10/29/16 12:51 36.4 87 20 124/86 94 Room Air Physical Exam Vital signs reviewed. General: Tearful, anxious-appearing female with a moist cough, in no significant distress, smells of tobacco. HEENT: No scleral icterus, PERRLA, neck supple. Atraumatic. Cardiovascular: Regular rate and rhythm, no extra sounds. Pulmonary: Clear to auscultation bilaterally, normal work of breathing. Abdomen: Soft, nontender, nondistended, positive bowel sounds. Musculoskeletal: Atraumatic, tender to right ribs along midaxillary line, no peripheral edema. Neurologic: Patient awake alert and oriented x 3, full strength in all 4 extremities. Cranial nerves 2 through 12 grossly intact. Skin: Warm, dry, no rash Medical Decision & Procedures ER Provider Diagnostic Interpretation: CT results as stated below per my review and radiologist interpretation: HEAD CT NONCONTRAST Findings: The paranasal sinuses and mastoid air cells are clear. The calvarium and skull base are intact. The ventricles and sulci are within normal limits. There is no mass, hematoma, midline shift, or acute infarct. Impression: No acute intracranial abnormality. Electronically signed by: Claus Pollack M.D. 10/29/2016 1:45 PM Dictated Date/Time: 10/29/2016 1:[address] FINDINGS: All major osseous structures are intact. There is minimal mucosal thickening of the lateral aspect right sphenoid sinus as well as central aspects of the ethmoid sinuses. There is minimal mucosal thickening of the posterior aspects of the maxillary sinuses. There is soft tissue occlusion of the left ostiomeatal unit. There is soft tissue narrowing on the right. The orbital margins appear to be intact. IMPRESSION: 1. Mild scattered mucosal thickening of the sphenoid and ethmoid sinuses. 2. This is seen to a lesser degree involving the maxillary sinuses. 3. Soft tissue occlusion left ostiomeatal unit. Soft tissue narrowing right ostiomeatal unit. Electronically signed by: Claus Pollack M.D. 10/29/2016 1:47 PM Dictated Date/Time: 10/29/2016 1:45 PM Laboratory Results 10/29/16 13:20 Red Blood Count 5.05, Mean Corpuscular Volume 92.3, Mean Corpuscular Hemoglobin 31.7, Mean Corpuscular Hemoglobin Concent 34.3, Mean Platelet Volume 10.3, Neutrophils (%) (Auto) 38.8, Lymphocytes (%) (Auto) 52.1, Monocytes (%) (Auto) 8.2, Eosinophils (%) (Auto) 0.4, Basophils (%) (Auto) 0.2, Neutrophils # (Auto) 4.43, Lymphocytes # (Auto) 5.95, Monocytes # (Auto) 0.93, Eosinophils # (Auto) 0.05, Basophils # (Auto) 0.02 10/29/16 13:20 Test 10/29/16 13:20 White Blood Count 11.41 K/uL (4.8-10.8) Red Blood Count 5.05 M/uL (4.2-5.4) Hemoglobin 16.0 g/dL (12.0-16.0) Hematocrit 46.6 % (37-47) Mean Corpuscular Volume 92.3 fL (80-100) Mean Corpuscular Hemoglobin 31.7 pg (25-34) Mean Corpuscular Hemoglobin Concent 34.3 g/dl (32-36) Platelet Count 241 K/uL (130-400) Mean Platelet Volume 10.3 fL (7.4-10.4) Neutrophils (%) (Auto) 38.8 % Lymphocytes (%) (Auto) 52.1 % Monocytes (%) (Auto) 8.2 % Eosinophils (%) (Auto) 0.4 % Basophils (%) (Auto) 0.2 % Neutrophils # (Auto) 4.43 K/uL (1.4-6.5) Lymphocytes # (Auto) 5.95 K/uL (1.2-3.4) Monocytes # (Auto) 0.93 K/uL (0.11-0.59) Eosinophils # (Auto) 0.05 K/uL (0-0.5) Basophils # (Auto) 0.02 K/uL (0-0.2) RDW Standard Deviation 41.9 fL (36.4-46.3) RDW Coefficient of Variation 12.5 % (11.5-14.5) Immature Granulocyte % (Auto) 0.3 % Immature Granulocyte # (Auto) 0.03 K/uL (0.00-0.02) Anion Gap 9.0 mmol/L (3-11) Est Creatinine Clear Calc Drug Dose 112.2 ml/min Estimated GFR () 111.6 Estimated GFR (Non- 96.3 BUN/Creatinine Ratio 14.9 (10-20) Calcium Level 8.9 mg/dl (8.5-10.1) Total Bilirubin 0.4 mg/dl (0.2-1) Direct Bilirubin < 0.1 mg/dl (0-0.2) Aspartate Amino Transf (AST/SGOT) 26 U/L (15-37) Alanine Aminotransferase (ALT/SGPT) 56 U/L (12-78) Alkaline Phosphatase 57 U/L (45-117) Total Protein 7.6 gm/dl (6.4-8.2) Albumin 4.2 gm/dl (3.4-5.0) Laboratory results per my review. Medications Administered Medications (Trade) Dose Ordered Sig/Mannie Route Start Time Stop Time Status Last Admin Dose Admin Pseudoephedrine HCl (Sudafed Tab) 60 mg NOW STAT PO 10/29/16 13:06 10/29/16 13:11 DC 10/29/16 13:27 60 MG Fentanyl Citrate (Fentanyl Inj) 50 mcg NOW STAT IV 10/29/16 13:06 10/29/16 13:11 DC 10/29/16 13:26 50 MCG Cefdinir (Omnicef Cap) 300 mg ONE STAT PO 10/29/16 13:52 10/29/16 13:53 DC 10/29/16 14:18 300 MG ED Course 1259: Past medical records reviewed. The patient was evaluated in room B9. A complete history and physical examination was performed. 1306: Ordered Fentanyl Citrate 50 mcg IV, Sudafed Tab 60 mg PO 1352: Ordered Prednisone Tab 60 mg PO, Cefdinir 300 mg PO 1407: Upon reevaluation, the patient appeared to have improvement of her symptoms. I discussed findings with her. She verbalized agreement of the treatment plan. She was discharged home. Medical Decision Differentials include sinusitis, pneumonia, pulmonary embolism, rib fracture, postnasal drip, pharyngitis, chronic sinusitis, COPD, chronic cough. Medication Reconciliation: I attest that I have personally reviewed the patient' s current medication list. Blood Pressure Screening: Patient was found to have a slightly elevated blood pressure due to circumstances. I do not believe that the patient requires hypertension monitoring. This patient was evaluated and appeared to be in no significant distress. IV access was obtained and laboratory work was drawn. The patient was placed on the qa consultant. She was given Sudafed 60 mg orally. Patient was given IV fentanyl for her headache. CT scan of the head and sinuses was performed and reveals mild mucosal thickening. Details are as above. The patient was placed on Omnicef 300 mg twice daily for 10 days. She will continue Sudafed as needed for congestion. The patient will use Tylenol as needed for pain and continue her albuterol as needed. She'll follow-up with her physician for reevaluation this week and return to the ER for worsening of symptoms or any medical concerns. [place] Drug Monitoring Program Search Results: patient reviewed within database, no issues identified Impression Primary Impression: Rib pain on right side Additional Impression: Sinusitis Scribe Attestation The scribe's documentation has been prepared under my direction and personally reviewed by me in its entirety. I confirm that the note above accurately reflects all work, treatment, procedures, and medical decision making performed by me. Departure Information Dispostion Home / Self-Care Prescriptions Albuterol Sulfate (Proventil Hfa) 108 Mcg/Act Aer 2 PUFFS INH Q4H Y for cough, wheeze for 5 Days, #1 INHALER Prov: Brittney Alatorre M.D. 10/29/16 Pseudoephedrine (Sudafed) 30 Mg Tab 60 MG PO Q6 Y for congestion, #30 TAB Prov: Brittney Alatorre M.D. 10/29/16 Cefdinir (OMNICEF) 300 Mg Cap 1 CAP PO BID for 10 Days, #20 CAP Prov: Brittney Alatorre M.D. 10/29/16 Referrals No Doctor, Assigned (PCP) Forms HOME CARE DOCUMENTATION FORM, IMPORTANT VISIT INFORMATION, WORK / SCHOOL INSTRUCTIONS Patient Instructions My [facility] Additional Instructions Diagnosis: Right rib pain, sinusitis Sudafed 60 mg every 6 hours as needed for congestion Tylenol 650 mg every 6 hours as needed for pain Omnicef 300 mg twice daily for 10 days. Drink plenty of fluids. Albuterol 2 puffs every 4 hours as needed for cough. Return to emergency for worsening of symptoms or any medical concerns. Problem Qualifiers Additional Impression:
--- NOTE | 2016-10-29 13:46 | DIAGNOSTIC IMAGING REPORT ---
HEAD CT NONCONTRAST CT DOSE: HISTORY: Headache headache, drainage TECHNIQUE: Multiaxial CT images of the head were performed without the use of intravenous contrast. Comparison: None. Findings: The paranasal sinuses and mastoid air cells are clear. The calvarium and skull base are intact. The ventricles and sulci are within normal limits. There is no mass, hematoma, midline shift, or acute infarct. Impression: No acute intracranial abnormality. Electronically signed by: Claus Pollack M.D. 10/29/2016 1:45 PM Dictated Date/Time: 10/29/2016 1:44 PM
--- NOTE | 2016-10-29 13:48 | DIAGNOSTIC IMAGING REPORT ---
MAXILLOFACIAL CT CT DOSE: 736.33 mGy.cm HISTORY: Pain sinus pressure, drainage TECHNIQUE: Multiaxial CT images of the maxillofacial region were performed and reformatted in the coronal plane without the use of contrast. COMPARISON: None. FINDINGS: All major osseous structures are intact. There is minimal mucosal thickening of the lateral aspect right sphenoid sinus as well as central aspects of the ethmoid sinuses. There is minimal mucosal thickening of the posterior aspects of the maxillary sinuses. There is soft tissue occlusion of the left ostiomeatal unit. There is soft tissue narrowing on the right. The orbital margins appear to be intact. IMPRESSION: 1. Mild scattered mucosal thickening of the sphenoid and ethmoid sinuses. 2. This is seen to a lesser degree involving the maxillary sinuses. 3. Soft tissue occlusion left ostiomeatal unit. Soft tissue narrowing right ostiomeatal unit. Electronically signed by: Claus Pollack M.D. 10/29/2016 1:47 PM Dictated Date/Time: 10/29/2016 1:45 PM
[2016-10-29 13:49] LABS: HEMATOCRIT 46.6 % (37-47); MEAN CELL VOLUME 92.3 fL (80-100); MEAN CORPUSCULAR HEMOGLOBIN 31.7 pg (25-34); MEAN CORPUSCULAR HGB CONC 34.3 g/dl (32-36); MEAN PLATELET VOLUME 10.3 fL (7.4-10.4); PLATELET COUNT 241 K/uL (130-400); RED BLOOD COUNT 5.05 M/uL (4.2-5.4); WHITE BLOOD COUNT 11.41 K/uL (4.8-10.8)
[2016-10-29] MEDS ORDERED: CEFDINIR 300 MG CAP PO STA (13:52)
[2016-10-29] MEDS ORDERED: CEFD300C2 PO (14:02)
[2016-10-29] MEDS ORDERED: PSEU30TA20 PO (14:04)
[2016-10-29] MEDS ORDERED: ALBUAER INH (14:05)
[2016-10-29 14:09] LABS: ALT/SGPT 56 U/L (12-78); AST/SGOT 26 U/L (15-37); BLOOD UREA NITROGEN 11 mg/dl (7-18); BUN/CREATININE RATIO 14.9 (10-20); CALCIUM 8.9 mg/dl (8.5-10.1); CARBON DIOXIDE 25 mmol/L (21-32); CHLORIDE 109 mmol/L (98-107); CREATININE 0.75 mg/dl (0.60-1.20); GLUCOSE 74 mg/dl (70-99); POTASSIUM 4.1 mmol/L (3.5-5.1); SODIUM 143 mmol/L (136-145)
[2016-10-29 14:11] LABS: ALKALINE PHOSPHATASE 57 U/L (45-117)
[2016-10-29 14:30] VITALS: BP 111/79; PULSE 81; O2SAT 93
[2016-10-29 14:37] LABS: BASO % 0.2 %; BASO ABS # 0.02 K/uL (0-0.2); COMPLETE YES; EOS % 0.4 %; IG% 0.3 %; LYMPH % 52.1 %; LYMPH ABS # 5.95 K/uL (1.2-3.4); MONO % 8.2 %; NEUT % 38.8 %
[2016-11-24] MEDS ORDERED: AMOX875T3 PO (08:51)
[2016-12-01] MEDS ORDERED: OXYC-57 PO (10:59)
[2017-03-14] MEDS ORDERED: VNTHFA/IN INH (08:48)
== END 2016-10-29 14:31 | disposition home or self-care (01) ==
LOC: C.EDB 12:50
DX: R07.81 Pleurodynia (principal); J32.9 Chronic sinusitis, unspecified; M50.90 Cervical disc disorder, unspecified, unspecified cervical region; F17.210 Nicotine dependence, cigarettes, uncomplicated

== ENCOUNTER 2016-11-26 20:01 | Emergency (ER) | payer OTHER ==
[~2016-11-26] VITALS: Ht 175.3 cm; Wt 76.5 kg
[~2016-11-26 20:01] MED LIST changes: +AMOX875T3 PO; -AZITTAB PO
[2016-11-26 20:05] VITALS: TEMP 36.8; Ht 175.3 cm; Wt 76.5 kg
[2016-11-26] MEDS ORDERED: MoRPHine SULFATE 10 MG/ML CARP/VIAL IV STA (20:29)
[2016-11-26] MEDS ORDERED: ONDANSETRON INJ 2 MG/ML 2 ML VIAL IV STA (20:29)
[2016-11-26] MEDS ORDERED: ACET-1256 PO (20:55)
[2016-11-26 20:59] LABS: BASO % 0.5 %; BASO ABS # 0.04 K/uL (0-0.2); COMPLETE YES; EOS % 1.1 %; HEMATOCRIT 42.4 % (37-47); IG% 0.1 %; LYMPH % 38.4 %; LYMPH ABS # 3.15 K/uL (1.2-3.4); MEAN CELL VOLUME 93.2 fL (80-100); MEAN CORPUSCULAR HEMOGLOBIN 31.6 pg (25-34); MEAN PLATELET VOLUME 10.7 fL (7.4-10.4); MONO % 8.2 %; NEUT % 51.7 %; PLATELET COUNT 221 K/uL (130-400); RED BLOOD COUNT 4.55 M/uL (4.2-5.4); WHITE BLOOD COUNT 8.21 K/uL (4.8-10.8)
[2016-11-26 21:26] LABS: BLOOD UREA NITROGEN 15 mg/dl (7-18); BUN/CREATININE RATIO 12.7 (10-20); CALCIUM 8.9 mg/dl (8.5-10.1); CARBON DIOXIDE 25 mmol/L (21-32); CHLORIDE 109 mmol/L (98-107); GLUCOSE 102 mg/dl (70-99); SODIUM 140 mmol/L (136-145)
--- NOTE | 2016-11-26 21:39 | DIAGNOSTIC IMAGING REPORT ---
RIGHT RIBS UNILATERAL WITH PA CHEST CLINICAL HISTORY: r rib pain 7-8 Right cough. Pain. COMPARISON STUDY: None FINDINGS: Cortical fractures of the right sixth, seventh, and 11th ribs. No evidence pneumothorax. Minimal right basilar atelectasis. IMPRESSION: Nondisplaced cortical fractures right sixth, seventh, and 11th ribs. No evidence pneumothorax. The above report was generated using voice recognition software. It may contain grammatical, syntax or spelling errors. Electronically signed by: Claus Pollack M.D. 11/26/2016 9:37 PM Dictated Date/Time: 11/26/2016 9:36 PM
[2016-11-26] MEDS ORDERED: OXYC1TAB3 PO (22:09)
[2016-11-26 22:25] VITALS: BP 138/78; PULSE 84; O2SAT 94
--- NOTE | 2016-11-27 00:42 | EMERGENCY ROOM VISIT NOTE ---
History Report prepared by Cliveibmadhavi: Naz Ying Under the Supervision of: Dr. Marcell Gallegos D.O. First contact with patient: 20:21 Chief Complaint: RIB PAIN Stated Complaint: RIB PAIN/COUGHING History of Present Illness The patient is a 46 year old female who presents to the Emergency Room with complaints of persistent rib pain for the past 2 days. She reports she has ongoing sinus issues for years and is scheduled to undergo sinus surgery this coming week, in approximately 5 days. She states due to the sinus drainage that she has experienced recently, she has been coughing up phlegm and earlier today , coughed so hard "she heard ribs crack". She rates her rib pain as a 10/10 in intensity. Any movement or breathing worsens her pain. Pt denies headache, change in vision, fevers, shortness of breath, nausea, vomiting, diarrhea, pain with urination, and melena. Source of History: patient Onset: past few weeks Position: chest Symptom Intensity: 10/10 Timing: other (persistent) Modifying Factors (Worsening): breathing, movement Associated Symptoms: + cough, No fevers, No headache, No chest pain, No SOB , No nausea, No vomiting, No melena, No diarrhea, No urinary symptoms Review of Systems See HPI for pertinent positives & negatives. A total of 10 systems reviewed and were otherwise negative. Past Medical & Surgical Medical Problems: (1) Bronchitis (2) Bronchopneumonia (3) DDD (degenerative disc disease), cervical Family History Patient reports no known family medical history. Social History Smoking Status: Current Every Day Smoker Alcohol Use: none Drug Use: none Marital Status: Housing Status: lives with family Occupation Status: unemployed Current/Historical Medications Scheduled Acetaminophen (Tylenol), 1,000 MG PO DAILY Amoxicillin (Amoxil), 1 TAB PO BID Scheduled PRN Oxycodone Immediate Rel Tab (Roxicodone Ir), 5 MG PO Q4H PRN for Severe Pain Allergies Coded Allergies: Amitriptyline (Verified Allergy, Mild, CHRONIC FATIGUE, 11/26/16) Ibuprofen (Verified Allergy, Mild, VOMIT, 11/26/16) Sumatriptan (Verified Allergy, Mild, HEART RACES, 11/26/16) Nortriptyline (Verified Adverse Reaction, Unknown, "WACKY/HEART RATE INCREASES", 11/26/16) Physical Exam Vital Signs Date Time Temp Pulse Resp B/P (MAP) Pulse Ox O2 Delivery O2 Flow Rate FiO2 11/26/16 22:25 84 20 138/78 94 11/26/16 20:05 36.8 86 18 132/83 97 Room Air Physical Exam GENERAL: Patient is standing in room, holding right chest wall, appears to be in moderate distress. EYE EXAM: normal conjunctiva OROPHARYNX: no exudate, no erythema, lips, buccal mucosa, and tongue normal and mucous membranes are moist NECK: supple, no nuchal rigidity, no adenopathy, non-tender LUNGS: Clear to auscultation. Normal chest wall mechanics HEART: no murmurs, S1 normal and S2 normal CHEST: Acute reproducible tenderness in the right upper posterior rib cage ABDOMEN: abdomen soft, non-tender, normo-active bowel sounds, no masses, no rebound or guarding. BACK: Back is symmetrical on inspection and there is no deformity, no midline tenderness, no CVA tenderness. SKIN: no rashes and no bruising UPPER EXTREMITIES: upper extremities are grossly normal. LOWER EXTREMITIES: No pitting edema. Calves are equal bilaterally. NEURO EXAM: Normal sensorium, cranial nerves II-XII grossly intact, normal speech, no gross weakness of arms, no gross weakness of legs. Gross sensation intact. Medical Decision & Procedures ER Provider Diagnostic Interpretation: Radiology results as stated below per my review and the radiologist's interpretation: RIGHT RIBS UNILATERAL WITH PA CHEST CLINICAL HISTORY: r rib pain 7-8 Right cough. Pain. COMPARISON STUDY: None FINDINGS: Cortical fractures of the right sixth, seventh, and 11th ribs. No evidence pneumothorax. Minimal right basilar atelectasis. IMPRESSION: Nondisplaced cortical fractures right sixth, seventh, and 11th ribs. No evidence pneumothorax. The above report was generated using voice recognition software. It may contain grammatical, syntax or spelling errors. Electronically signed by: Claus Pollack M.D. 11/26/2016 9:37 PM Laboratory Results 11/26/16 20:40 Red Blood Count 4.55, Mean Corpuscular Volume 93.2, Mean Corpuscular Hemoglobin 31.6, Mean Corpuscular Hemoglobin Concent 34.0, Mean Platelet Volume 10.7, Neutrophils (%) (Auto) 51.7, Lymphocytes (%) (Auto) 38.4, Monocytes (%) (Auto) 8.2, Eosinophils (%) (Auto) 1.1, Basophils (%) (Auto) 0.5, Neutrophils # (Auto) 4.25, Lymphocytes # (Auto) 3.15, Monocytes # (Auto) 0.67, Eosinophils # (Auto) 0.09, Basophils # (Auto) 0.04 11/26/16 20:40 Test 11/26/16 20:40 White Blood Count 8.21 K/uL (4.8-10.8) Red Blood Count 4.55 M/uL (4.2-5.4) Hemoglobin 14.4 g/dL (12.0-16.0) Hematocrit 42.4 % (37-47) Mean Corpuscular Volume 93.2 fL (80-100) Mean Corpuscular Hemoglobin 31.6 pg (25-34) Mean Corpuscular Hemoglobin Concent 34.0 g/dl (32-36) Platelet Count 221 K/uL (130-400) Mean Platelet Volume 10.7 fL (7.4-10.4) Neutrophils (%) (Auto) 51.7 % Lymphocytes (%) (Auto) 38.4 % Monocytes (%) (Auto) 8.2 % Eosinophils (%) (Auto) 1.1 % Basophils (%) (Auto) 0.5 % Neutrophils # (Auto) 4.25 K/uL (1.4-6.5) Lymphocytes # (Auto) 3.15 K/uL (1.2-3.4) Monocytes # (Auto) 0.67 K/uL (0.11-0.59) Eosinophils # (Auto) 0.09 K/uL (0-0.5) Basophils # (Auto) 0.04 K/uL (0-0.2) RDW Standard Deviation 43.7 fL (36.4-46.3) RDW Coefficient of Variation 12.8 % (11.5-14.5) Immature Granulocyte % (Auto) 0.1 % Immature Granulocyte # (Auto) 0.01 K/uL (0.00-0.02) Anion Gap 6.0 mmol/L (3-11) Est Creatinine Clear Calc Drug Dose 61.9 ml/min Estimated GFR () 63.2 Estimated GFR (Non- 54.5 BUN/Creatinine Ratio 12.7 (10-20) Calcium Level 8.9 mg/dl (8.5-10.1) Laboratory results per my review. Medications Administered Medications (Trade) Dose Ordered Sig/Mannie Route Start Time Stop Time Status Last Admin Dose Admin Morphine Sulfate (MoRPHine SULFATE INJ) 6 mg NOW STAT IV 11/26/16 20:29 11/26/16 20:30 DC 11/26/16 20:56 6 MG Ondansetron HCl (Zofran Inj) 4 mg NOW STAT IV 11/26/16 20:29 11/26/16 20:30 DC 11/26/16 20:56 4 MG ECG Indication: SOB/dyspnea Rate (beats per minute): 76 Rhythm: sinus rhythm Findings: no ectopy, other (low voltage QRS) ED Course ED COURSE: Vital signs were reviewed and showed the patient is hypertensive. The patients medical record was reviewed The above diagnostic studies were performed and reviewed. ED treatments and interventions as stated above. 2022: The patient was evaluated in room A4. A complete history and physical examination was performed. 2028: Zofran 4 mg IV, Morphine Sulfate 6 mg IV. 2199: Upon reevaluation, the patient is feeling much better. I discussed my findings with the patient and she understands and agrees with the treatment plan. Based on the patients age, coexisting illnesses, exam and lab findings the decision to treat as an outpatient was made. The patient remained stable while under my care. The patient appeared well at the time of discharge. Medical Decision Medication Reconciliation: I attest that I have personally reviewed the patient' s current medication list. Blood Pressure Screening: The patient was found to have a slightly elevated blood pressure due to circumstances. I do not believe that the patient requires hypertension monitoring. Patient is a 46-year-old female who presents the ER for right rib pain. She notes that she was coughing and had sudden onset of right chest wall pain. It is clearly reproducible on exam. X-rays show 3 acute rib fractures. She is given morphine with improvement of her pain. EKG was unremarkable. This is not cardiac in etiology as it is clearly reproducible. Patient was updated regards to findings. She was discharged follow-up with her primary care doctor within 3 separate rib fractures. Discussed with Pt concerning signs and symptoms to watch out for. Pt was instructed to follow up with their PCP and discussed with the patient their option to return to the ED at anytime for persistent or worsening symptoms. The appropriate anticipatory guidance and out- patient management, including indications for return to the emergency department , were explained at length to the patient and understood. [place] Drug Monitoring [place] Search Results: patient reviewed within database, no issues identified Impression Primary Impression: Multiple rib fractures Scribe Attestation The scribe's documentation has been prepared under my direction and personally reviewed by me in its entirety. I confirm that the note above accurately reflects all work, treatment, procedures, and medical decision making performed by me. Departure Information Dispostion Home / Self-Care Prescriptions Oxycodone Immediate Rel Tab (ROXICODONE IR) 5 Mg Tab 5 MG PO Q4H Y for Severe Pain, #20 TAB Prov: Marcell Gallegos, DO 11/26/16 Referrals Blanche Dejesus MD (PCP) Patient Instructions Fx Rib, My [facility] [address] Additional Instructions Please follow up with your primary care doctor with in the next 24 hours. Any worsening of your symptoms, please return to the ED immediately. This includes worsening pain, inability to breathe, fevers greater than 100.4, or any other concerning signs or symptoms from your standpoint. You were given medications during this visit that will inhibit your ability to drive, operate machinery and work. Please do NOT drive, operate machinery or work for the next 12hrs. You were also given a prescription for a narcotic/oxy IR. While taking this medication you should also not drive, operate machinery and or work. Problem Qualifiers Primary Impression: Multiple rib fractures Encounter type: initial encounter Fracture type: closed Laterality: right Qualified Codes: S22.41XA - Multiple fractures of ribs, right side, initial encounter for closed fracture
== END 2016-11-26 22:31 | disposition home or self-care (01) ==
LOC: C.EDB 20:04 → C.EDA 22:31
DX: S22.41XA Multiple fractures of ribs, right side, initial encounter for closed fracture (principal); Y93.89 Activity, other specified; R05 Cough; F17.210 Nicotine dependence, cigarettes, uncomplicated; J32.9 Chronic sinusitis, unspecified

== ENCOUNTER → 2016-12-01 | Day surgery (SDC) | payer OTHER ==
[2016-11-24 08:55] VITALS: Ht 175.3 cm; Wt 84.1 kg
--- NOTE | 2016-11-30 11:44 | History and Physical: Surg Cnt ---
History & Physical Date Nov 30, 2016. Chief Complaint sinusitis History of Present Illness The patient is a 46 year old female with complaints of chronic sinusitis, drainage, and cough resulting in 3 rib fractures Past Medical/Surgical History Medical Problems: (1) Bronchitis (2) Bronchopneumonia (3) DDD (degenerative disc disease), cervical Additional History Hepatic Disease: No Endocrine Disorder: No Kidney Disease: No Hypertension: No Heart Disease: No Bleeding Tendencies: No Infectious Diseases: No Allergies Coded Allergies: Amitriptyline (Verified Allergy, Mild, CHRONIC FATIGUE, 11/26/16) Ibuprofen (Verified Allergy, Mild, VOMIT, 11/26/16) Sumatriptan (Verified Allergy, Mild, HEART RACES, 11/26/16) Nortriptyline (Verified Adverse Reaction, Unknown, "WACKY/HEART RATE INCREASES", 11/26/16) Home Medications Scheduled Acetaminophen (Tylenol), 1,000 MG PO DAILY Amoxicillin (Amoxil), 1 TAB PO BID Scheduled PRN Oxycodone Immediate Rel Tab (Roxicodone Ir), 5 MG PO Q4H PRN for Severe Pain Physical Examination Skin: warm/dry, no rash Eyes: normal inspection, EOMI, sclerae normal ENT: normal ENT inspection, pharynx normal Head: normocephalic, atraumatic Neck: supple, no adenopathy, trachea midline Respiratory/Chest: lungs clear, normal breath sounds, no respiratory distress Cardiovascular: regular rate, rhythm, no edema, no murmur Abdomen / GI: normal bowel sounds, non tender Back: normal inspection Extremities: normal inspection, normal range of motion Neurologic/Psych: no motor/sensory deficits, alert, normal reflexes, oriented x 3 Diagnosis chronic sinusitis, septal deviation Plan of Treatment endoscopic sinus surgery, septoplasty
[~2016-12-01] VITALS: Ht 175.3 cm; Wt 84.1 kg
[~2016-12-01] MED LIST changes: +ACET-1256 PO; +ALBUTEROL HFA 8 GM INHALER INH ONE; +AMOX500T3 PO; +ATROPINE SULFATE 0.1 MG/ML 5ML SYR IV PRN; +BACITRACIN OINT 15 GM TUBE ONE; +CEFAZOLIN 2000 MG/60 ML D5W IV SCH; +DEXAMETHASONE SOD INJ 4 MG/ML VIAL ONE; +EpHEDrine SULFATE INJ 50 MG/ML AMP IV PRN; +EpINEphrine INJ 1MG/ML AMP 1 MG/ML AMP ONE; +FENTANYL CITRATE INJ 50 MCG/1 ML 2 ML VIAL ONE; +GELATIN SPONGE 12-7MM ONE; +LACTATED RINGER'S 1000ML 1,000 ML IV SCH; +LIDO 2%/EPINEPHRINE 1:100000 20 ML VIAL INFIL ONE; +LIDOCAINE 4% MPF SOAK 5 ML = 1 DOSE TOP ONE; +LIDOCAINE HCL 2% 2 ML VIAL (20MG/ML) ONE; +MIDAZOLAM HCL 1 MG/ML 2ML VIAL ONE; +ONDANSETRON INJ 2 MG/ML 2 ML VIAL IV PRN; +ONDANSETRON INJ 2 MG/ML 2 ML VIAL ONE; +OXYC-57 PO; +OXYC1TAB3 PO; +OXYCODONE/ACETAMINOPHEN 5-325 TAB PO PRN; +PROPOFOL IV EMULSION 10 MG/ML 20 ML VIAL IV ONE; +SODIUM CHLORIDE 0.9% 1000ML 1,000 ML IV SCH; +SUCCINYLCHOLINE CHLORIDE 20 MG/ML 10 ML VIAL IV ONE
--- NOTE | 2016-12-01 10:47 | History & Physical Bridge Note ---
H&P Re-Evaluation Bridge Note: I have examined the patient, reviewed the History & Physical and in the interval since the performance of the History & Physical I have noted the following changes of clinical significance: She has 3 broken ribs from coughing. Otherwise no change.
--- NOTE | 2016-12-01 11:00 | Discharge Instructions-SurgCtr ---
Discharge Instructions Date of Service Dec 01, 2016. Visit Reason for Visit: Chronic Sinusitis, Septal Deviation Discharge Discharge Diagnosis / Problem: same Discharge Goals Goal(s): Improve function Activity Recommendations Activity Limitations: resume your previous activity Anesthesia . Post Anesthesia Instructions: If you have had General Anesthesia or IV Sedation: * Do not drive today. * Resume driving when surgeon permits. * Do not make important decisions or sign legal documents today. * Call surgeon for: 1. Temperature elevations greater than 101 degrees F. 2. Uncontrollable pain. 3. Excessive bleeding. 4. Persistent nausea and vomiting. 5. Medication intolerance (nausea, vomiting or rash). * For nausea and vomiting use only clear liquids such as: tea, soda, bouillon until nausea subsides, then gradually increase diet as tolerated. * If you have any concerns or questions, call your surgeon's office. If physician is unavailable and it is an emergency, call 911 or go to the nearest emergency room. . Instructions / Follow-Up Instructions / Follow-Up ACTIVITY RECOMMENDATIONS: * Being up and around is good, but no strenuous activity, heavy lifting or physical exertion for one week. * Keep your head elevated 30 degrees when lying down or sleeping. * Do not blow your nose for 48 hours, sniff back instead. * Avoid hot showers. OVER THE COUNTER MEDICATIONS: * You may use Tylenol * Avoid aspirin or aspirin containing products, e.g. as they may increase bleeding. SPECIAL CARE INSTRUCTIONS: * Expect to have bloody drainage from your nose and/or down your throat for one to three days. Change drip pad as needed. * Begin irrigating your nose with saline solution today, at least six to ten times per day and sniff back to help remove old clots or crust. * You may experience nasal and facial congestion, pain and pressure, this is normal. * Please call with any significant and/or progressive pain, redness, swelling around the eyes, visual changes, fever of 101.5 degrees F, active bleeding or any problems or concerns. * If active bleeding occurs, spray the nose three times at one minute intervals with Afrin spray and call or cell phone: . If unable to reach the doctor, go to the nearest Emergency Department. Special Diet: * Avoid extremely hot fluids. FOLLOW UP VISIT: Follow-up Visit with Dr. Rosales If not already scheduled, please call to schedule. Diet Recommendations Home Diet: no limitations Pending Studies Studies pending at discharge: no Medical Emergencies . Who to Call and When: Medical Emergencies: If at any time you feel your situation is an emergency, please call 911 immediately. . Non-Emergent Contact Non-Emergency issues call your: Primary Care Provider . . "Provider Documentation" section prepared by Barbara Rosales. . [place] Drug Monitoring [place] Search Results: no issues identified
[2016-12-01] MEDS: FENTANYL CITRATE INJ 50 MCG/1 ML 2 ML VIAL IV PRN ×2 (12:49→13:02)
--- NOTE | 2016-12-01 12:54 | [facility] Operative Report ---
Operative Report Operative Date Dec 01, 2016. Pre-Operative Diagnosis Chronic Sinusitis, Septal Deviation Post-Operative Diagnosis Same Procedure(s) Performed Right and Left Frontal, Right and Left Sphenoid, Total Ethmoid, Right and Left Maxillary Sinusotomies Surgeon Dr. Marya Rosales Igniter Capper Surgeon(s) None Estimated Blood Loss 30 cc Findings Polypoid mucosa block nasal frontal duct with mucopurulent drainage and septal deviation to the right Specimens A. Left Ethmoid Tissue Drains none Anesthesia general endotracheal Complication(s) None Disposition Recovery Room / PACU Implants Regular sized propel implants Indications 46-year-old lady with acute persistent sinusitis triggering persistent drainage and cough with 3 fractured ribs due to the coughing Description of Procedure The patient was brought to the operating room and placed in the supine position. She was prepped and draped in the usual sterile manner. RFMarq device calibrated used for the entire procedure. The nose was decongested using cottonoids with a solution of 4 mL of 4% Xylocaine mixed with 1 mL of epinephrine. Injection 2% sent Xylocaine with 1 100,000 strength epinephrine was also used. The right maxillary sinus was cannulated with the guidewire and dilated using the 6 mm balloon as was the left maxillary sinus. The left sphenoid sinus was cannulated with the guidewire with BrainLab computer guidance and dilated using the 6 mm balloon as was the right sphenoid sinus. The sphenoid sinuses were suctioned clean. The left nasal frontal duct was cannulated with the guidewire and dilated using the 6 mm balloon. The guidewire was left in place as a marker. Frontal sinusotomy was performed with the shaver couple with the BrainLab device removing the anterior wall and then the posterior wall of the agger nasi cell. On the left side there were 2 frontal sinuses 1 in the midline and one laterally. Both of these frontal sinuses were dilated using the 6 mm balloon. At this point total ethmoidectomy was performed opening up the bullae ethmoidalis going through the ground lamella into the posterior ethmoid air cells and then exonerating all the posterior ethmoid air cells up to the skull base superiorly and lamina papyracea bilaterally. The structures were followed anteriorly to exonerate all the posterior and then all the anterior ethmoid air cells up to the previously dilated nasal frontal ducts. The previously dilated maxillary sinus ostia was probed using the seeker and then opened using the shaver opening the ostia to a natural opening. Sphenoid was opened by removing polypoid mucosa at the inferior border of the superior turbinate which is the anterior face of the sphenoid sinus. The right frontal sinusotomy total ethmoidectomy sphenoidotomy and maxillary sinus antrostomy was performed in a similar manner. Regular size propel stents were placed. Endoscopic septoplasty was performed. The right Julian incision was made using the 15 blade. Mucoperichondrial flaps were elevated using the caudal dissector, elevating superior and inferior and then bilateral posterior tunnels after the cartilage from the perpendicular plate of the ethmoid and from the vomer maxillary crest. A large bony and cartilaginous spur projecting to the right was removed using the Monserrat rongeurs and the Radha forceps. The septum was packed using a single piece of Gelfoam on the right side. The patient tolerated procedure well was taken recovery area in satisfactory condition. I attest to the content of the Intraoperative Record and any orders documented therein. Any exceptions are noted below.
[2016-12-01 14:10] VITALS: TEMP 36.5
--- NOTE | 2016-12-01 15:10 | Anesthesia Progress Nt - [facility] ---
Anesthesia Post Op Note Date & Time Dec 01, 2016 at 15:10 Vital Signs Pain Intensity: 4 Vital Signs Past 12 Hours Date Time Temp Pulse Resp B/P (MAP) Pulse Ox O2 Delivery O2 Flow Rate FiO2 12/01/16 14:32 147/81 (103) 12/01/16 14:10 36.5 83 16 161/89 (113) 94 Room Air 12/01/16 14:02 36.6 12/01/16 14:00 147/96 (105) 12/01/16 13:58 64 13 98 12/01/16 13:58 63 13 12/01/16 13:56 147/90 (111) 12/01/16 13:53 85 14 12/01/16 13:53 88 14 156/91 (109) 97 12/01/16 13:51 130/103 (113) 12/01/16 13:48 65 14 12/01/16 13:48 68 14 92 12/01/16 13:46 157/90 (111) 12/01/16 13:43 65 18 12/01/16 13:43 64 18 97 12/01/16 13:40 152/86 (102) 12/01/16 13:38 70 15 98 12/01/16 13:38 70 15 12/01/16 13:35 154/90 (110) 12/01/16 13:33 67 15 12/01/16 13:33 67 15 98 12/01/16 13:30 143/89 (107) 12/01/16 13:28 79 13 96 12/01/16 13:28 74 13 12/01/16 13:26 145/89 (98) 12/01/16 13:24 Room Air 12/01/16 13:23 70 16 95 12/01/16 13:23 69 16 12/01/16 13:20 150/91 (109) 12/01/16 13:18 65 15 98 12/01/16 13:18 64 15 12/01/16 13:16 142/80 (89) 12/01/16 13:13 72 17 12/01/16 13:13 73 17 94 12/01/16 13:11 154/89 (95) 12/01/16 13:08 82 16 93 12/01/16 13:08 84 16 12/01/16 13:06 151/88 (101) 12/01/16 13:03 69 14 95 12/01/16 13:03 69 14 12/01/16 13:00 153/93 (113) 12/01/16 12:58 77 16 12/01/16 12:58 80 16 96 12/01/16 12:55 146/85 (95) 12/01/16 12:53 80 16 12/01/16 12:53 81 16 88 12/01/16 12:51 130/97 (111) 12/01/16 12:48 88 16 94 12/01/16 12:48 87 16 12/01/16 12:45 144/89 (103) 12/01/16 12:43 86 18 96 12/01/16 12:43 86 18 12/01/16 12:40 137/84 (95) 12/01/16 12:38 85 16 93 12/01/16 12:38 85 16 12/01/16 12:35 135/85 (93) 12/01/16 12:33 93 16 12/01/16 12:33 95 16 95 12/01/16 12:31 130/81 (94) 12/01/16 12:30 36.4 87 18 130/81 98 Humidified Oxygen 6 Mask 12/01/16 08:42 36.4 72 22 119/84 (96) 95 Room Air Notes Mental Status: alert / awake / arousable, participated in evaluation Pt Amnestic to Procedure: Yes Nausea / Vomiting: adequately controlled Pain: adequately controlled Airway Patency, RR, SpO2: stable & adequate BP & HR: stable & adequate Hydration State: stable & adequate Anesthetic Complications: no major complications apparent
[2016-12-01 15:21] VITALS: BP 166/94; PULSE 73; O2SAT 95
== END | disposition home or self-care (01) ==
LOC: X.SURG 08:04
PROVIDERS: ATTEND Otolaryngology
DX: J32.9 Chronic sinusitis, unspecified (principal); J34.2 Deviated nasal septum

== ENCOUNTER → 2016-12-12 | Outpatient (CLI) | payer OTHER ==
[~2016-12-12] MED LIST changes: -ALBUTEROL HFA 8 GM INHALER INH ONE; -AMOX875T3 PO; -ATROPINE SULFATE 0.1 MG/ML 5ML SYR IV PRN; -BACITRACIN OINT 15 GM TUBE ONE; -CEFAZOLIN 2000 MG/60 ML D5W IV SCH; -DEXAMETHASONE SOD INJ 4 MG/ML VIAL ONE; -EpHEDrine SULFATE INJ 50 MG/ML AMP IV PRN; -EpINEphrine INJ 1MG/ML AMP 1 MG/ML AMP ONE; -FENTANYL CITRATE INJ 50 MCG/1 ML 2 ML VIAL ONE; -GELATIN SPONGE 12-7MM ONE; -LACTATED RINGER'S 1000ML 1,000 ML IV SCH; -LIDO 2%/EPINEPHRINE 1:100000 20 ML VIAL INFIL ONE; -LIDOCAINE 4% MPF SOAK 5 ML = 1 DOSE TOP ONE; -LIDOCAINE HCL 2% 2 ML VIAL (20MG/ML) ONE; -MIDAZOLAM HCL 1 MG/ML 2ML VIAL ONE; -ONDANSETRON INJ 2 MG/ML 2 ML VIAL IV PRN; -ONDANSETRON INJ 2 MG/ML 2 ML VIAL ONE; -OXYCODONE/ACETAMINOPHEN 5-325 TAB PO PRN; -PROPOFOL IV EMULSION 10 MG/ML 20 ML VIAL IV ONE; -SODIUM CHLORIDE 0.9% 1000ML 1,000 ML IV SCH; -SUCCINYLCHOLINE CHLORIDE 20 MG/ML 10 ML VIAL IV ONE
[2016-12-12 12:32] LABS: BASO % 0.3 %; BASO ABS # 0.02 K/uL (0-0.2); COMPLETE YES; EOS % 0.9 %; HEMATOCRIT 43.2 % (37-47); IG% 0.3 %; LYMPH % 34.5 %; LYMPH ABS # 2.68 K/uL (1.2-3.4); MEAN CELL VOLUME 92.9 fL (80-100); MEAN CORPUSCULAR HEMOGLOBIN 31.4 pg (25-34); MEAN CORPUSCULAR HGB CONC 33.8 g/dl (32-36); MEAN PLATELET VOLUME 10.2 fL (7.4-10.4); MONO % 7.9 %; NEUT % 56.1 %; PLATELET COUNT 257 K/uL (130-400); RED BLOOD COUNT 4.65 M/uL (4.2-5.4); WHITE BLOOD COUNT 7.76 K/uL (4.8-10.8)
[2016-12-12 12:50] LABS: ALT/SGPT 28 U/L (12-78); AST/SGOT 14 U/L (15-37); BLOOD UREA NITROGEN 15 mg/dl (7-18); BUN/CREATININE RATIO 16.6 (10-20); CALCIUM 9.2 mg/dl (8.5-10.1); CARBON DIOXIDE 28 mmol/L (21-32); CHLORIDE 105 mmol/L (98-107); CHOLESTEROL 169 mg/dl (0-200); CREATININE 0.88 mg/dl (0.60-1.20); GLUCOSE 85 mg/dl (70-99); POTASSIUM 3.8 mmol/L (3.5-5.1); SODIUM 140 mmol/L (136-145); TRIGLYCERIDES 225 mg/dl (0-150); VERY LOW DENSITY LIPOPROT CALC 45 mg/dl
[2016-12-12 12:53] LABS: ALB/GLOB RATIO 1.3 (0.9-2); ALKALINE PHOSPHATASE 66 U/L (45-117); CHOLESTEROL/HDL RATIO 3.6; HDL CHOLESTEROL 47 mg/dl; LDL CHOLESTEROL CALCULATED 77 mg/dl
== END | disposition home or self-care (01) ==
LOC: C.LAB 11:41
PROVIDERS: ATTEND Nurse Practitioner Adult Health
DX: Z00.00 Encounter for general adult medical examination without abnormal findings (principal)

== ENCOUNTER 2017-02-15 19:35 | Emergency (ER) | payer OTHER ==
[~2017-02-15] VITALS: Ht 175.3 cm; Wt 84.7 kg
[~2017-02-15 19:35] MED LIST changes: -ACET-1256 PO; -AMOX500T3 PO
[2017-02-15 19:40] VITALS: TEMP 36.8; Ht 175.3 cm; Wt 84.7 kg
[2017-02-15] MEDS ORDERED: ACETAMINOPHEN 500 MG TAB PO STA (20:49)
[2017-02-15] MEDS ORDERED: SODIUM CHLORIDE 0.9% 1000ML 1,000 ML IV STA (20:49)
[2017-02-15] MEDS ORDERED: SODIUM CHLORIDE 0.9% 1000ML 1,000 ML IV SCH (20:49)
[2017-02-15 20:58] LABS: BASO % 0.4 %; BASO ABS # 0.03 K/uL (0-0.2); COMPLETE YES; EOS % 1.1 %; HEMATOCRIT 44.2 % (37-47); IG% 0.1 %; LYMPH % 46.9 %; MEAN CELL VOLUME 90.4 fL (80-100); MEAN CORPUSCULAR HEMOGLOBIN 29.9 pg (25-34); MEAN PLATELET VOLUME 10.1 fL (7.4-10.4); MONO % 6.7 %; NEUT % 44.8 %; PLATELET COUNT 231 K/uL (130-400); RED BLOOD COUNT 4.89 M/uL (4.2-5.4); WHITE BLOOD COUNT 7.46 K/uL (4.8-10.8)
[2017-02-15 21:06] LABS: PARTIAL THROMBOPLASTIN RATIO 1.1; PROTHROMBIN TIME (PATIENT) 10.8 SECONDS (9.0-12.0)
[2017-02-15 21:09] VITALS: O2SAT 96
[2017-02-15 21:15] LABS: BLOOD UREA NITROGEN 11 mg/dl (7-18); BUN/CREATININE RATIO 14.1 (10-20); CALCIUM 9.1 mg/dl (8.5-10.1); CARBON DIOXIDE 25 mmol/L (21-32); CHLORIDE 110 mmol/L (98-107); CREATININE 0.76 mg/dl (0.60-1.20); GLUCOSE 96 mg/dl (70-99); POTASSIUM 3.7 mmol/L (3.5-5.1); SODIUM 141 mmol/L (136-145)
[2017-02-15 21:16] LABS: URINE APPEARANCE CLEAR (CLEAR); URINE BILIRUBIN NEG (NEG); URINE COLOR YELLOW; URINE EPITHELIAL CELL AUTO 20-30 /lpf (0-5); URINE NITRITE NEG (NEG); URINE PH 6.5 (4.5-7.5); URINE SPECIFIC GRAVITY 1.014 (1.000-1.030); UROBILINOGEN NEG (NEG); ZZUR CULT IF INDIC CLEAN CATCH NO
[2017-02-15 21:19] LABS: MANUAL MICROSCOPIC REQUIRED? NO; REVIEW REQ? NO
[2017-02-15 21:20] LABS: CKMB/CK RATIO 1.4 (0-3.0)
--- NOTE | 2017-02-15 21:32 | DIAGNOSTIC IMAGING REPORT ---
HEAD WITHOUT CONTRAST (CT) CLINICAL HISTORY: 46 years-old Female with Stroke. Acute strokelike symptoms. TECHNIQUE: Multiple axial CT images of the head were obtained without contrast. A dose lowering technique was utilized adhering to the principles of ALARA. CT DOSE: 537.48 mGy.cm COMPARISON: CT head 10/29/2016. FINDINGS: No acute intracranial hemorrhage, midline shift, mass, large territorial ischemia or abnormal extra-axial collection. The calvarium is intact. The paranasal sinuses, mastoid air cells, and middle ear cavities are clear. IMPRESSION: No acute intracranial abnormality. The above report was generated using voice recognition software. It may contain grammatical, syntax or spelling errors. Electronically signed by: Biju Mejia M.D. 02/15/2017 9:30 PM Dictated Date/Time: 02/15/2017 9:29 PM
[2017-02-15 21:46] LABS: LYME DISEASE AB IGG NEG (NEG); LYME DISEASE AB IGM NEG (NEG)
--- NOTE | 2017-02-15 21:59 | EMERGENCY ROOM VISIT NOTE ---
History Report prepared by Yaima: Tamar Feliciano Under the Supervision of: Dr. Vito Boyd M.D. First contact with patient: 20:27 Chief Complaint: NEURO SYMPTOMS Stated Complaint: TINGLING IN FACE ARM LEG Nursing Triage Summary: L sided facial numbness. today. went away then "came back with a vengence". neck surgery in July. sinus surgery in December. neck pain. tingling in L arm. hx migraines but none since neck surgery. moving out of mold infested home. History of Present Illness The patient is a 46 year old female who presents to the Emergency Room with complaints of persistent left sided tingling starting 1600 today. She has been having tingling in her left hand, left foot, and left face. She denies any numbness or visual aura. The tingling in her face has now resolved and she currently has a headache. She notes that she has had similar symptoms before which resolved after having neck surgery. She has had a cough recently. She had sinus surgery 10 weeks ago. Source of History: patient Onset: 1600 today Position: other (left side) Quality: other (tingling) Timing: other (persistent) Associated Symptoms: + headache, + cough, No numbness Note: Pt denies visual aura. Review of Systems See HPI for pertinent positives & negatives. A total of 10 systems reviewed and were otherwise negative. Past Medical & Surgical Medical Problems: (1) Bronchitis (2) Bronchopneumonia (3) DDD (degenerative disc disease), cervical Family History Patient reports no known family medical history. Social History Smoking Status: Current Every Day Smoker Alcohol Use: none Drug Use: none Marital Status: Housing Status: lives with significant other Occupation Status: unemployed Current/Historical Medications Scheduled PRN Acetaminophen (Tylenol), 1,000 MG PO DIRECTED PRN for Pain Allergies Coded Allergies: Amoxicillin (Verified Allergy, Severe, "SEVERE GI UPSET"., 02/15/17) Clavulanic Acid (Verified Allergy, Severe, "SEVERE GI UPSET"., 02/15/17) Amitriptyline (Verified Allergy, Mild, CHRONIC FATIGUE, 02/15/17) Ibuprofen (Verified Allergy, Mild, VOMIT, 02/15/17) Sumatriptan (Verified Allergy, Mild, HEART RACES, 02/15/17) Nortriptyline (Verified Adverse Reaction, Unknown, "WACKY/HEART RATE INCREASES", 02/15/17) Physical Exam Vital Signs Date Time Temp Pulse Resp B/P (MAP) Pulse Ox O2 Delivery O2 Flow Rate FiO2 02/16/17 00:51 72 18 119/68 97 02/16/17 00:43 72 18 119/68 97 Room Air 02/15/17 23:09 63 18 114/70 97 Room Air 02/15/17 22:34 66 20 97 Room Air 02/15/17 21:59 72 02/15/17 21:09 96 Room Air 02/15/17 21:09 76 16 107/64 95 Room Air 02/15/17 19:40 36.8 88 18 133/78 95 Room Air Physical Exam GENERAL: Patient is a healthy-appearing well-nourished female HEAD: Normocephalic atraumatic EYES: Ocular movements intact pupils equal and react to light OROPHARYNX mucous membranes are moist no exudates present no erythema or edema present NECK: Supple no nuchal rigidity CHEST: Good equal expansion LUNGS: Clear and equal to auscultation CARDIAC: Normal S1 and S2 ABDOMEN: Soft nontender no guarding BACK: No CVA tenderness EXTREMITIES: No pain upon palpation normal muscle strength in all groups no clubbing cyanosis or edema NEURO: Patient is following commands and answering questions appropriately. Alert and oriented x3 Cranial Nerves 2-12 grossly intact Medical Decision & Procedures ER Provider Diagnostic Interpretation: X-ray results as stated below per interpretation by me and the radiologist. Radiology results as stated below per my review and radiologist interpretation: CHEST ONE VIEW PORTABLE HISTORY: 46 years-old Female Stroke acute strokelike symptoms. Initial exam. COMPARISON: Chest radiograph 10/25/2016, chest and rib radiographs 11/26/2016 TECHNIQUE: Portable upright AP view of the chest FINDINGS: Cardiomediastinal and hilar silhouettes are within normal limits. No pneumothorax, pleural effusion or focal airspace consolidation. Hazy subsegmental left basilar opacity suggests atelectasis. Subacute right-sided rib fractures redemonstrated. IMPRESSION: Subsegmental left basilar atelectasis without acute cardiopulmonary process. The above report was generated using voice recognition software. It may contain grammatical, syntax or spelling errors. Electronically signed by: Biju Mejia M.D. 02/15/2017 9:59 PM Dictated Date/Time: 02/15/2017 9:57 PM HEAD WITHOUT CONTRAST (CT) CLINICAL HISTORY: 46 years-old Female with Stroke. Acute strokelike symptoms. TECHNIQUE: Multiple axial CT images of the head were obtained without contrast. A dose lowering technique was utilized adhering to the principles of ALARA. CT DOSE: 537.48 mGy.cm COMPARISON: CT head 10/29/2016. FINDINGS: No acute intracranial hemorrhage, midline shift, mass, large territorial ischemia or abnormal extra-axial collection. The calvarium is intact. The paranasal sinuses, mastoid air cells, and middle ear cavities are clear. IMPRESSION: No acute intracranial abnormality. The above report was generated using voice recognition software. It may contain grammatical, syntax or spelling errors. Electronically signed by: Biju Mejia M.D. 02/15/2017 9:30 PM Dictated Date/Time: 02/15/2017 9:29 PM Radiology results as stated below per my review and [facility] radiologist interpretation: CT C spine: No acute or healing fracture or malalignment. Surgical fusion with discectomy at C4-5 and C5-6. No hardware complications. No critical central canal stenosis. No airway narrowing or soft tissue hematoma. Laboratory Results 02/15/17 20:50 Red Blood Count 4.89, Mean Corpuscular Volume 90.4, Mean Corpuscular Hemoglobin 29.9, Mean Corpuscular Hemoglobin Concent 33.0, Mean Platelet Volume 10.1, Neutrophils (%) (Auto) 44.8, Lymphocytes (%) (Auto) 46.9, Monocytes (%) (Auto) 6.7, Eosinophils (%) (Auto) 1.1, Basophils (%) (Auto) 0.4, Neutrophils # (Auto) 3.34, Lymphocytes # (Auto) 3.50, Monocytes # (Auto) 0.50, Eosinophils # (Auto) 0.08, Basophils # (Auto) 0.03 02/15/17 20:50 Test 02/15/17 20:40 02/15/17 20:50 02/15/17 21:00 02/15/17 21:04 Lyme Disease IgG Antibody NEG (NEG) Lyme Disease IgM Antibody NEG (NEG) White Blood Count 7.46 K/uL (4.8-10.8) Red Blood Count 4.89 M/uL (4.2-5.4) Hemoglobin 14.6 g/dL (12.0-16.0) Hematocrit 44.2 % (37-47) Mean Corpuscular Volume 90.4 fL (80-100) Mean Corpuscular Hemoglobin 29.9 pg (25-34) Mean Corpuscular Hemoglobin Concent 33.0 g/dl (32-36) Platelet Count 231 K/uL (130-400) Mean Platelet Volume 10.1 fL (7.4-10.4) Neutrophils (%) (Auto) 44.8 % Lymphocytes (%) (Auto) 46.9 % Monocytes (%) (Auto) 6.7 % Eosinophils (%) (Auto) 1.1 % Basophils (%) (Auto) 0.4 % Neutrophils # (Auto) 3.34 K/uL (1.4-6.5) Lymphocytes # (Auto) 3.50 K/uL (1.2-3.4) Monocytes # (Auto) 0.50 K/uL (0.11-0.59) Eosinophils # (Auto) 0.08 K/uL (0-0.5) Basophils # (Auto) 0.03 K/uL (0-0.2) RDW Standard Deviation 41.9 fL (36.4-46.3) RDW Coefficient of Variation 12.7 % (11.5-14.5) Immature Granulocyte % (Auto) 0.1 % Immature Granulocyte # (Auto) 0.01 K/uL (0.00-0.02) Prothrombin Time 10.8 SECONDS (9.0-12.0) Prothromb Time International Ratio 1.0 (0.9-1.1) Activated Partial Thromboplast Time 28.9 SECONDS (21.0-31.0) Partial Thromboplastin Ratio 1.1 Anion Gap 6.0 mmol/L (3-11) Est Creatinine Clear Calc Drug Dose 108.6 ml/min Estimated GFR () 109.8 Estimated GFR (Non- 94.7 BUN/Creatinine Ratio 14.1 (10-20) Calcium Level 9.1 mg/dl (8.5-10.1) Total Creatine Kinase 79 U/L (26-192) Creatine Kinase MB 1.1 ng/ml (0.5-3.6) Creatine Kinase MB Ratio 1.4 (0-3.0) Troponin I < 0.015 ng/ml (0-0.045) Urine Color YELLOW Urine Appearance CLEAR (CLEAR) Urine pH 6.5 (4.5-7.5) Urine Specific [place] 1.014 (1.000-1.030) Urine Protein NEG (NEG) Urine Glucose (UA) NEG (NEG) Urine Ketones NEG (NEG) Urine Occult Blood TRACE (NEG) Urine Nitrite NEG (NEG) Urine Bilirubin NEG (NEG) Urine Urobilinogen NEG (NEG) Urine Leukocyte Esterase NEG (NEG) Urine WBC (Auto) 1-5 /hpf (0-5) Urine RBC (Auto) 5-10 /hpf (0-4) Urine Hyaline Casts (Auto) 0 /lpf (0-5) Urine Epithelial Cells (Auto) 20-30 /lpf (0-5) Urine Bacteria (Auto) NEG (NEG) Bedside Glucose 98 mg/dl (70-90) Labs reviewed by ED physician. Medications Administered Medications (Trade) Dose Ordered Sig/Mannie Route Start Time Stop Time Status Last Admin Dose Admin Sodium Chloride 1,000 ml @ 50 mls/hr Q20H IV 02/15/17 20:49 02/16/17 01:21 DC 02/15/17 22:45 50 MLS/HR Sodium Chloride 1,000 ml @ 999 mls/hr Q1H1M STAT IV 02/15/17 20:49 02/15/17 21:49 DC 02/15/17 20:49 999 MLS/HR Acetaminophen (Tylenol Tab) 1,000 mg NOW STAT PO 02/15/17 20:49 02/15/17 20:50 DC 02/15/17 21:55 1,000 MG Levalbuterol (Xopenex 0.31MG/ 3ML Neb) 0.31 mg NOW STAT INH 02/15/17 22:24 02/15/17 22:26 DC 02/15/17 22:32 0.31 MG ECG Indication: other Rate (beats per minute): 70 Rhythm: normal sinus Findings: no acute ischemic change, no ectopy ED Course 2040: Past medical records reviewed. The patient was evaluated in room A12B. A complete history and physical examination was performed. 2048: Acetaminophen 1000 mg PO, NSS 1000 ml @ 999 mls/hr IV, NSS 1000 ml @ 50 mls/hr IV. 2224: Levalbuterol 0.31 mg INH. 2225: I reevaluated the patient. She will be going for CT neck. 0044: Upon reexamination the patient is resting comfortably. I discussed results and treatment plan with the patient. She verbalizes agreement and understanding. The patient is ready for discharge. Medical Decision Differential diagnosis: Etiologies such as metabolic, infection, hypo/hyperglycemia, electrolyte abnormalities, cardiac sources, intracerebral event, toxicologic, neurologic, as well as others were entertained. This is a 46-year-old female that presents to the emergency Department during a period of high volume and high acuity with multiple complaints. The patient is complaining of facial numbness and tingling as well as left arm numbness and tingling along with left foot numbness and tingling. In addition the patient states that she had a headache that started after the numbness and tingling started. The patient reports is not the worst headache of her life and she has no evidence of meningitis or encephalitis on examination. Using shared medical decision-making I felt that the patient was most likely suffering from a migraine and recommended a migraine cocktail however the patient became angry at this and stuck her finger in my face saying that I was not going to push "my medications on her." I stressed to the patient that we would continue to try and figure out her symptoms and obtain an EKG as well as CT of the head as well as laboratory work. I will note that the patient does not have an elevation in her white blood count and does not have an elevation in her blood pressure. CAT scan of the head does not show any evidence of stroke. She also has a negative Lyme. My suspicion of a TIA or CVA is exceedingly low. I went back to explain this to the patient when the patient began complaining of a cough as well as bronchitis-like symptoms. I recommended that the patient stop smoking as well as an inhaler however this made the patient even angrier. I even recommended a Xopenex inhaler however the patient has refused most of the medications IV recommended. She did receive a normal saline bolus as well as Tylenol. In addition the patient feels that her symptoms are being caused by her neck. I stressed that the symptoms would not fit the pathology of a neck issue however the patient amended a CAT scan of the neck. She was then sent for a CAT scan of the neck. When I returned a final time to recount the fact that the patient's CAT scan of her neck was normal she became again angry with me and stated that my attitude was poor. She then accused me of trying to push medications on her again. At this point I feel that I cannot please this patient and told her to follow-up with her primary care physician. In retrospect and talking to the nurses that were caring for this patient the patient appears acutely paranoid. She was even suspicious of water that was given to her by the nurses and refused to drink it. Medication Reconcilliation Current Medication List: was personally reviewed by me Blood Pressure Screening Patient's blood pressure: Normal blood pressure Blood pressure disposition: Did not require urgent referral Impression Primary Impression: Migraine Additional Impression: Bronchitis Scribe Attestation The scribe's documentation has been prepared under my direction and personally reviewed by me in its entirety. I confirm that the note above accurately reflects all work, treatment, procedures, and medical decision making performed by me. Departure Information Dispostion Home / Self-Care Referrals Blanche Dejesus MD (PCP) Forms HOME CARE DOCUMENTATION FORM, IMPORTANT VISIT INFORMATION, WORK / SCHOOL INSTRUCTIONS Patient Instructions Bronchitis Acute Dc, ED Headache Migraine, My [facility] Additional Instructions Follow up with Dr Dejesus Problem Qualifiers Primary Impression: Migraine Migraine type: unspecified Status migrainosus presence: without status migrainosus Intractability: not intractable Qualified Codes: G43.909 - Migraine, unspecified, not intractable, without status migrainosus
[2017-02-15] MEDS ORDERED: LEValbuterol HFA 15GM INHALER INH STA (22:24)
[2017-02-15] MEDS ORDERED: DOXYCYCLINE HYCLATE 100 MG CAP PO STA (22:24)
[2017-02-15] MEDS ORDERED: LEVALBUTEROL 0.31MG/3 ML VIAL INH STA (22:24)
[2017-02-15 22:34] VITALS: PULSE 66; O2SAT 97
[2017-02-16] MEDS ORDERED: DOXYCYCLINE HYCLATE 100 MG CAP PO ONE (00:35)
[2017-02-16 00:51] VITALS: BP 119/68; PULSE 72; O2SAT 97
--- NOTE | 2017-02-16 07:15 | DIAGNOSTIC IMAGING REPORT ---
CT SCAN OF THE CERVICAL SPINE CLINICAL HISTORY: Neck pain. COMPARISON STUDY: MRI of the cervical spine dated 05/12/2016. TECHNIQUE: CT scan of the cervical spine is performed from the skull base to the upper thoracic spine. Images are reviewed in the axial, sagittal, and coronal planes. IV contrast was not administered for this examination. A dose lowering technique was utilized adhering to the principles of ALARA. CT DOSE: 235.15 mGy.cm FINDINGS: Skeletal structures: The skeletal structures are well mineralized. There is no evidence of fracture or subluxation involving the cervical spine. There are postoperative changes from anterior fusion seen from C4-C6. Vertebral body height and alignment are maintained. There is straightening of the cervical lordosis. The odontoid process and lateral masses are intact. The atlantoaxial articulation is preserved. The spinous processes appear intact. Degenerative sclerosis is seen at C4-C5 and C5-C6. Anterior osteophytes are seen at C6-C7. Intervertebral discs: There is evidence of discectomy at C4-C5 and C5-C6. The disc spaces are otherwise maintained. Central canal: Grossly patent. Soft tissues: The prevertebral and paraspinous soft tissues are within normal limits. Calvarium: The visualized calvarium at the skull base appears intact. Brain parenchyma: Partially visualized brain parenchyma the skull base is within normal limits. Sinuses and mastoids: The visualized paranasal sinuses are clear. The mastoid air cells are well pneumatized. Lung apices: Clear as visualized. IMPRESSION: 1. There is no evidence of fracture or subluxation involving the cervical spine. 2. Postoperative change as above. Electronically signed by: Henrik Mckeon M.D. 02/16/2017 7:13 AM Dictated Date/Time: 02/16/2017 7:10 AM
== END 2017-02-16 00:53 | disposition home or self-care (01) ==
LOC: C.EDB 19:36 → C.EDA 02-16 00:53
DX: G43.909 Migraine, unspecified, not intractable, without status migrainosus (principal); J40 Bronchitis, not specified as acute or chronic; M50.30 Other cervical disc degeneration, unspecified cervical region; F17.210 Nicotine dependence, cigarettes, uncomplicated

== ENCOUNTER 2017-02-19 14:17 | Emergency (ER) | payer OTHER ==
[~2017-02-19] VITALS: Ht 172.7 cm; Wt 85.1 kg
[2017-02-19 14:20] VITALS: TEMP 36.6; Ht 172.7 cm; Wt 85.1 kg
[2017-02-19] MEDS ORDERED: SODIUM CHLORIDE 0.9% 1000ML 1,000 ML IV STA (16:11)
[2017-02-19] MEDS ORDERED: BENZONATATE 100MG CAP PO ONE (16:15)
[2017-02-19 16:22] LABS: HEMATOCRIT 45.7 % (37-47); MEAN CORPUSCULAR HEMOGLOBIN 31.3 pg (25-34); MEAN CORPUSCULAR HGB CONC 34.8 g/dl (32-36); MEAN PLATELET VOLUME 10.1 fL (7.4-10.4); PLATELET COUNT 235 K/uL (130-400); RED BLOOD COUNT 5.08 M/uL (4.2-5.4); WHITE BLOOD COUNT 8.81 K/uL (4.8-10.8)
[2017-02-19 16:28] LABS: BASO % 0.2 %; BASO ABS # 0.02 K/uL (0-0.2); COMPLETE YES; EOS % 0.9 %; IG% 0.1 %; LYMPH % 38.6 %; LYMPH ABS # 3.35 K/uL (1.2-3.4); MONO % 6.5 %; NEUT % 53.7 %
[2017-02-19 16:42] LABS: BUN/CREATININE RATIO 16.1 (10-20); CALCIUM 9.2 mg/dl (8.5-10.1); CREATININE 0.89 mg/dl (0.60-1.20); POTASSIUM 3.9 mmol/L (3.5-5.1)
--- NOTE | 2017-02-19 17:38 | DIAGNOSTIC IMAGING REPORT ---
CHEST 2 VIEWS ROUTINE CLINICAL HISTORY: 46 years-old Female presenting with cough . TECHNIQUE: PA and lateral views of the chest were obtained. COMPARISON: 02/15/2017. FINDINGS: Cardiomediastinal silhouette normal. Lungs and pleural spaces clear. Osseous structures normal. Upper abdomen normal. IMPRESSION: 1. No acute cardiopulmonary disease. Electronically signed by: Holden Yan M.D. 02/19/2017 5:37 PM Dictated Date/Time: 02/19/2017 5:36 PM
[2017-02-19] MEDS ORDERED: AMOXICILLIN 250 MG CAP PO STA (18:02)
[2017-02-19] MEDS ORDERED: AMOX500T3 PO (18:03)
[2017-02-19 18:38] VITALS: BP 129/82; PULSE 78; O2SAT 98
--- NOTE | 2017-02-19 20:33 | EMERGENCY ROOM VISIT NOTE ---
History Report prepared by Cliveibmadhavi: Jose Bagley Under the Supervision of: Dr. Marcell Gallegos D.O. First contact with patient: 15:42 Chief Complaint: OTHER COMPLAINT Stated Complaint: COUGH,SINUS, GALLOWAY, TINGLING, History of Present Illness The patient is a 46 year old female who presents to the Emergency Room with complaints of a constant cough that started December 01. She notes on December 01 is when she had sinus surgery. The patient states that the coughing has been causing her to feel a pulling in her bilateral neck. She also notes when the coughing gets bad she has a pressure in her face and will get nauseous with this. She currently denies any weakness or numbness in her arms or legs or face. She notes that that when she has extreme coughing fits she experiences tingling in her arms bilaterally. She reports that she has also been experiencing increased drainage in the back of her throat which has been present since December 01/surgery. Patient notes that the true cause of her coughing is the postnasal drip from her sinuses. If she did not have this she does not believe she would be coughing. The patient admits that she was here two days ago treated as a stroke patient. At that time she had a CT of her head and cervical spine. She also admits to a history of two shoulder surgeries and neck surgery. The patient denies sore throat, fevers, vomiting, diarrhea, chest pain, SOB, abdominal pain, recent antibiotics, and ear pain. Source of History: patient Onset: December 01 Position: other (global) Quality: other (global) Timing: constant Associated Symptoms: + headache, + neck pain, + nausea, No fevers, No sorethroat, No chest pain, No SOB, No vomiting, No abdominal pain Review of Systems See HPI for pertinent positives & negatives. A total of 10 systems reviewed and were otherwise negative. Past Medical & Surgical Medical Problems: (1) Bronchitis (2) Bronchopneumonia (3) DDD (degenerative disc disease), cervical Family History Patient reports no known family medical history. Social History Smoking Status: Current Every Day Smoker Alcohol Use: none Drug Use: none Marital Status: Housing Status: lives with significant other Occupation Status: unemployed Current/Historical Medications Scheduled Amoxicillin (Amoxil), 500 MG PO TID Scheduled PRN Acetaminophen (Tylenol), 1,000 MG PO DIRECTED PRN for Pain Allergies Coded Allergies: Clavulanic Acid (Verified Allergy, Severe, "SEVERE GI UPSET"., 02/19/17) Amitriptyline (Verified Allergy, Mild, CHRONIC FATIGUE, 02/19/17) Ibuprofen (Verified Allergy, Mild, VOMIT, 02/19/17) Sumatriptan (Verified Allergy, Mild, HEART RACES, 02/19/17) Nortriptyline (Verified Adverse Reaction, Unknown, "WACKY/HEART RATE INCREASES", 02/19/17) Physical Exam Vital Signs Date Time Temp Pulse Resp B/P (MAP) Pulse Ox O2 Delivery O2 Flow Rate FiO2 02/19/17 18:38 78 18 129/82 98 02/19/17 16:21 80 18 129/82 97 Room Air 02/19/17 14:20 36.6 84 18 136/84 97 Room Air Physical Exam GENERAL: sitting up in bed with a nonproductive cough, well nourished, no distress, non-toxic. EYE EXAM: normal conjunctiva. OROPHARYNX: no exudate, no erythema, lips, buccal mucosa, and tongue normal and mucous membranes are moist NECK: supple, no nuchal rigidity, no adenopathy, tenderness in the bilateral paraspinal region LUNGS: Clear to auscultation. Normal chest wall mechanics HEART: no murmurs, S1 normal and S2 normal ABDOMEN: abdomen soft, non-tender, normo-active bowel sounds, no masses, no rebound or guarding. BACK: Back is symmetrical on inspection and there is no deformity, no midline tenderness, no CVA tenderness. SKIN: no rashes and no bruising UPPER EXTREMITIES: upper extremities are grossly normal. LOWER EXTREMITIES: No pitting edema. NEURO EXAM: Normal sensorium, cranial nerves II-XII intact, normal speech, no weakness of arms, no weakness of legs. Gross sensation intact. Medical Decision & Procedures ER Provider Diagnostic Interpretation: Radiology results as stated below per my review and the radiologist's interpretation: CHEST 2 VIEWS ROUTINE CLINICAL HISTORY: 46 years-old Female presenting with cough . TECHNIQUE: PA and lateral views of the chest were obtained. COMPARISON: 02/15/2017. FINDINGS: Cardiomediastinal silhouette normal. Lungs and pleural spaces clear. Osseous structures normal. Upper abdomen normal. IMPRESSION: 1. No acute cardiopulmonary disease. Electronically signed by: Holden Yan M.D. 02/19/2017 5:37 PM Dictated Date/Time: 02/19/2017 5:36 PM Laboratory Results 02/19/17 16:08 Red Blood Count 5.08, Mean Corpuscular Volume 90.0, Mean Corpuscular Hemoglobin 31.3, Mean Corpuscular Hemoglobin Concent 34.8, Mean Platelet Volume 10.1, Neutrophils (%) (Auto) 53.7, Lymphocytes (%) (Auto) 38.6, Monocytes (%) (Auto) 6.5, Eosinophils (%) (Auto) 0.9, Basophils (%) (Auto) 0.2, Neutrophils # (Auto) 4.65, Lymphocytes # (Auto) 3.35, Monocytes # (Auto) 0.56, Eosinophils # (Auto) 0.08, Basophils # (Auto) 0.02 02/19/17 16:08 Test 02/19/17 16:08 White Blood Count 8.81 K/uL (4.8-10.8) Red Blood Count 5.08 M/uL (4.2-5.4) Hemoglobin 15.9 g/dL (12.0-16.0) Hematocrit 45.7 % (37-47) Mean Corpuscular Volume 90.0 fL (80-100) Mean Corpuscular Hemoglobin 31.3 pg (25-34) Mean Corpuscular Hemoglobin Concent 34.8 g/dl (32-36) Platelet Count 235 K/uL (130-400) Mean Platelet Volume 10.1 fL (7.4-10.4) Neutrophils (%) (Auto) 53.7 % Lymphocytes (%) (Auto) 38.6 % Monocytes (%) (Auto) 6.5 % Eosinophils (%) (Auto) 0.9 % Basophils (%) (Auto) 0.2 % Neutrophils # (Auto) 4.65 K/uL (1.4-6.5) Lymphocytes # (Auto) 3.35 K/uL (1.2-3.4) Monocytes # (Auto) 0.56 K/uL (0.11-0.59) Eosinophils # (Auto) 0.08 K/uL (0-0.5) Basophils # (Auto) 0.02 K/uL (0-0.2) RDW Standard Deviation 41.4 fL (36.4-46.3) RDW Coefficient of Variation 12.6 % (11.5-14.5) Immature Granulocyte % (Auto) 0.1 % Immature Granulocyte # (Auto) 0.01 K/uL (0.00-0.02) Anion Gap 6.0 mmol/L (3-11) Est Creatinine Clear Calc Drug Dose 91.2 ml/min Estimated GFR () 90.7 Estimated GFR (Non- 78.3 BUN/Creatinine Ratio 16.1 (10-20) Calcium Level 9.2 mg/dl (8.5-10.1) Laboratory results per my review. Medications Administered Medications (Trade) Dose Ordered Sig/Mannie Route Start Time Stop Time Status Last Admin Dose Admin Sodium Chloride 1,000 ml @ 999 mls/hr Q1H1M STAT IV 02/19/17 16:11 02/19/17 17:11 DC 02/19/17 16:20 999 MLS/HR Benzonatate (Tessalon Perles Cap) 100 mg NOW ONCE PO 02/19/17 16:15 02/19/17 16:16 DC 02/19/17 16:21 100 MG Amoxicillin (Amoxil Cap) 500 mg NOW STAT PO 02/19/17 18:02 02/19/17 18:03 DC 02/19/17 18:36 500 MG ED Course ED COURSE: Vital signs were reviewed and showed hypertensive The patients medical record was reviewed The above diagnostic studies were performed and reviewed. ED treatments and interventions as stated above. 1544: The patient was evaluated in room A09A. A complete history and physical examination was performed. 1610: I reviewed the patient's EMR of January 16, 2017, which showed a CT of her head that has no acute pathologies and a CT of her neck that showed old surgical effusions. 1611: Ordered Sodium Chloride 1000 ml @ 999 mls/hr IV. 1615: Ordered Benzonatate 100 mg PO. 1727: I reevaluated the patient and she feels about the same. 1802: Ordered Amoxicillin 500 mg PO. 1803: Upon reevaluation, the patient is feeling better. She prefers to have Amoxicillin over Augmentin. I discussed the findings and the treatment plan with the patient. She verbalizes agreement and understanding. The patient was discharged home. Medical Decision Differential diagnoses includes but is not limited to pneumonia, bronchitis, COPD/Asthma exacerbation, pneumothorax, pulmonary embolism, congestive heart failure, acute coronary syndrome. Patient is a 46-year-old female who presents to ER for postnasal drip which has been present since this summer when she had sinus surgery. She notes that since then she has been having drip in the back of her throat which has been causing her to cough. Recently has been worse. She was seen here 4 days ago and had a CT of the head and cervical spine which was negative. Patient denies any fevers, chest pain or shortness of breath with the exception of discomfort when coughing. Patient is neurologically intact. She complains of bilateral cervical paraspinal tenderness. Symptoms appear to stem from her postnasal drip. She has tried multiple medications including Mucinex. She was given Tessalon Perles but noted that did not help. Recommended Mucinex although she states she is a retried this combination with Augmentin. She notes the Augmentin made her nauseous consequently she requested just amoxicillin as this normally helps. As the patient is afebrile, drinking without difficulty and no respiratory complaints no additional imaging was obtained. She was discharged with amoxicillin and Tessalon Perles to follow-up with PCP with a postnasal drip causing coughing, neck pain and headache. No signs of meningitis or encephalitis on exam. Discussed with Pt concerning signs and symptoms to watch out for. Pt was instructed to follow up with their PCP and discussed with the patient their option to return to the ED at anytime for persistent or worsening symptoms. The appropriate anticipatory guidance and out-patient management, including indications for return to the emergency department, were explained at length to the patient and understood. Medication Reconcilliation Current Medication List: was personally reviewed by me Blood Pressure Screening Patient's blood pressure: Elevated blood pressure Blood pressure disposition: Elevated BP felt to be situational Impression Primary Impression: Sinusitis Additional Impressions: Post-nasal drip Cough Scribe Attestation The scribe's documentation has been prepared under my direction and personally reviewed by me in its entirety. I confirm that the note above accurately reflects all work, treatment, procedures, and medical decision making performed by me. Departure Information Dispostion Home / Self-Care Prescriptions Amoxicillin (AMOXIL) 500 Mg Tab 500 MG PO TID, #30 TAB Prov: Marcell Gallegos, DO 02/19/17 Referrals No Doctor, Assigned (PCP) Forms HOME CARE DOCUMENTATION FORM, IMPORTANT VISIT INFORMATION, WORK / SCHOOL INSTRUCTIONS Patient Instructions My [facility], Sinusitis Acute Additional Instructions Please follow up with your primary care doctor with in the next 24 hours. Any worsening of your symptoms, please return to the ED immediately. This includes any fevers greater than 100.4, worsening pain, chest pain, shortness breath, persistent nausea, vomiting, unable to eat or drink, this includes any weakness or numbness in arms or legs, or any other concerning signs or symptoms from your standpoint. Please take antibiotic as prescribed. Problem Qualifiers Primary Impression: Sinusitis Sinusitis location: frontal Chronicity: unspecified Qualified Codes: J32.1 - Chronic frontal sinusitis
[2017-02-19] MEDS ORDERED: ACET-1256 PO (20:55)
== END 2017-02-19 18:40 | disposition home or self-care (01) ==
LOC: C.EDB 14:18 → C.EDA 18:40
DX: J32.9 Chronic sinusitis, unspecified (principal); R09.82 Postnasal drip; R05 Cough; M50.30 Other cervical disc degeneration, unspecified cervical region; F17.200 Nicotine dependence, unspecified, uncomplicated; Z88.8 Allergy status to other drugs, medicaments and biological substances

== ENCOUNTER 2017-02-19 19:18 | Emergency (ER) | payer OTHER ==
[~2017-02-19] VITALS: Ht 175.3 cm; Wt 85.7 kg
[~2017-02-19 19:18] MED LIST changes: +AMOX500T3 PO; -OXYC-57 PO; -OXYC1TAB3 PO
[2017-02-19 19:33] VITALS: TEMP 36.9; Ht 175.3 cm; Wt 85.7 kg
[2017-02-19] MEDS ORDERED: ACET-1256 PO (20:55)
--- NOTE | 2017-02-19 21:49 | DIAGNOSTIC IMAGING REPORT ---
SOFT TISSUE NECK CLINICAL HISTORY: 46 years-old Female presenting with eval for FB. TECHNIQUE: Frontal and lateral views of the neck were obtained. COMPARISON: CT from 02/15/2017. FINDINGS: Cervical fusion hardware at C4-C6 noted. Straightening of normal cervical lordosis. No prevertebral soft tissue swelling. The patient is edentulous. No radiopaque foreign body in the hypopharynx or larynx. Few calcifications noted at the level of C4-5 projecting over the hypopharynx, likely within adjacent soft tissues of the neck. No thickening of the epiglottis or aryepiglottic folds. Upper trachea clear. Lung apices clear. IMPRESSION: No radiopaque foreign body identified. Electronically signed by: Holden Yan M.D. 02/19/2017 9:48 PM Dictated Date/Time: 02/19/2017 9:45 PM
[2017-02-19 22:11] VITALS: BP 122/64; PULSE 74; O2SAT 99
--- NOTE | 2017-02-20 00:41 | EMERGENCY ROOM VISIT NOTE ---
History Report prepared by Yaima: Theresa Rivera Under the Supervision of: Dr. Lorenzo Beard M.D. First contact with patient: 20:51 Chief Complaint: THROAT PAIN/INJURY Stated Complaint: KNOT IN THROAT History of Present Illness The patient is a 46 year old female who presents to the Emergency Room with complaints of constant throat discomfort starting 2 hours ago. The patient states that she was here earlier for a cough. She states that she was given Tessalon Perles before leaving. She reports that 20 minutes later after she left she started to develop the feeling of a knot in her throat. She states that it feels itchy and scratchy. She denies having difficulty swallowing. The patient states that she was also given Amoxicillin, but denies having an allergic reaction to Penicillin. She notes that she is able to drink water. The patient denies chest pain, vomiting, shortness of breath, tongue swelling, and redness to skin. She denies having hives. She states that this has all started from her sinus surgery. She notes that she has spoke to Dr. Rosales who sees her and tells her she will be okay. She states that she has a cough and sinus drip. She notes that this past week has been the worst. She reports she has tried Mucinex with no relief. Source of History: patient Onset: 2 hours ago Position: throat Quality: other (itchy and scratchy ) Timing: constant Associated Symptoms: + cough, No chest pain, No SOB, No vomiting Note: The patient complains of a sinus drip. The patient denies having difficulty swallowing, tongue swelling, redness to skin, and hives. Review of Systems See HPI for pertinent positives & negatives. A total of 10 systems reviewed and were otherwise negative. Past Medical & Surgical Medical Problems: (1) Bronchitis (2) Bronchopneumonia (3) DDD (degenerative disc disease), cervical Family History Patient reports no known family medical history. Social History Smoking Status: Current Every Day Smoker Alcohol Use: none Drug Use: none Marital Status: Housing Status: lives with significant other Occupation Status: unemployed Current/Historical Medications Scheduled Amoxicillin (Amoxil), 500 MG PO TID Scheduled PRN Acetaminophen (Tylenol), 1,000 MG PO Q6H PRN for Pain Allergies Coded Allergies: Clavulanic Acid (Verified Allergy, Severe, "SEVERE GI UPSET"., 02/19/17) Amitriptyline (Verified Allergy, Mild, CHRONIC FATIGUE, 02/19/17) Ibuprofen (Verified Allergy, Mild, VOMIT, 02/19/17) Sumatriptan (Verified Allergy, Mild, HEART RACES, 02/19/17) Nortriptyline (Verified Adverse Reaction, Unknown, "WACKY/HEART RATE INCREASES", 02/19/17) Physical Exam Vital Signs Date Time Temp Pulse Resp B/P (MAP) Pulse Ox O2 Delivery O2 Flow Rate FiO2 02/19/17 22:11 74 18 122/64 99 02/19/17 21:21 76 18 133/77 99 Room Air 02/19/17 19:33 96 Room Air 02/19/17 19:33 36.9 76 18 146/94 99 Room Air Physical Exam Constitutional: Vital signs reviewed. Eyes: Pupils are equal round reactive to light. Conjunctiva are noninjected. ENT: Pharynx is clear without erythema or exudate. No epiglottic or uvula edema. Mucous membranes are moist. Neck supple without meningeal signs. No swelling to neck or tenderness to the larynx. Respiratory: Clear to auscultation bilaterally. Breath sounds are equal bilaterally. Coughing through exam. No wheezing or stridor. Cardiovascular: Regular rate and rhythm. No rubs or gallops. GI: Soft, nondistended and nontender. Bowel sounds are present. Musculoskeletal: No peripheral edema. Integumentary: No cyanosis. Neurological: The patient is awake and alert. No focal deficits. Psychiatric: Normal affect. Medical Decision & Procedures ER Provider Diagnostic Interpretation: Radiology results as stated below per my review and the radiologist's interpretation: SOFT TISSUE NECK CLINICAL HISTORY: 46 years-old Female presenting with eval for FB. TECHNIQUE: Frontal and lateral views of the neck were obtained. COMPARISON: CT from 02/15/2017. FINDINGS: Cervical fusion hardware at C4-C6 noted. Straightening of normal cervical lordosis. No prevertebral soft tissue swelling. The patient is edentulous. No radiopaque foreign body in the hypopharynx or larynx. Few calcifications noted at the level of C4-5 projecting over the hypopharynx, likely within adjacent soft tissues of the neck. No thickening of the epiglottis or aryepiglottic folds. Upper trachea clear. Lung apices clear. IMPRESSION: No radiopaque foreign body identified. Electronically signed by: Holden Yan M.D. 02/19/2017 9:48 PM Dictated Date/Time: 02/19/2017 9:45 PM Medications Administered Medications (Trade) Dose Ordered Sig/Mannie Route Start Time Stop Time Status Last Admin Dose Admin Diphenhydramine HCl (Benadryl Cap) 50 mg NOW ONCE PO 02/19/17 21:15 02/19/17 21:16 DC 02/19/17 21:20 50 MG ED Course 2105: The patient was evaluated in room B8. A complete history and physical exam was performed. 2114: Ordered Benadryl Cap 50 mg PO. 2199: I reevaluated the patient and she still feels a foreign body sensation. She is having no difficulty breathing and declined Hexedine as she can't take Hydrocodone. She was advised to stop the Tensilon Perles and to follow up with her PCP. I discussed tonight's findings with her. She verbalized agreement of the treatment plan. The patient was discharged home. Medical Decision This is a 46-year-old female who presents with foreign body sensation to her throat. Differential diagnosis includes globus pallidus, laryngitis, retained foreign body, allergic reaction, esophageal abrasion. I did perform a limited focused review of portions of the patient's old chart on the electronic medical record. The patient was seen here earlier today at 1540 for a cough and sinus symptoms. Her chest x-ray and blood work were normal. She was treated with Amoxicillin and Tessalon Perles. She was diagnosed with sinusitis. Four days ago she had a CT of head and cervical spine which were negative. The patient is hypertensive. I did evaluate the patient as noted above. The patient is feeling like there is something stuck in her throat. She has an unremarkable physical examination. She does not have any hives or angioedema to suggest an acute allergic reaction. I did, however, treat her with Benadryl. I did order and personally review the patient's soft tissue neck x-rays as described above. There is no evidence of soft tissue swelling or epiglottitis or acute process. I did discuss the test result with the patient. I did recommend she stop taking the Tessalon Perles. She was advised follow closely with her doctor and discharged in good condition. She was given return instructions as outlined below. Medication Reconcilliation Current Medication List: was personally reviewed by me Blood Pressure Screening Patient's blood pressure: Elevated blood pressure Blood pressure disposition: Referred to PCP Impression Primary Impression: Foreign body sensation in throat Scribe Attestation The scribe's documentation has been prepared under my direct and personally reviewed by me in its entirety. I confirm that the note above accurately reflects all work, treatment, procedures, and medical decision making performed by me. Departure Information Dispostion Home / Self-Care Referrals Elizabet Hastings C.R.N.P. (PCP) Forms HOME CARE DOCUMENTATION FORM, IMPORTANT VISIT INFORMATION, WORK / SCHOOL INSTRUCTIONS Patient Instructions My [facility] Additional Instructions You have been examined and treated today on an emergency basis only. This is not a substitute for, or an effort to provide, complete comprehensive medical care. It is impossible to recognize and treat all injuries or illnesses in a single emergency department visit. It is therefore important that you follow up closely with your physician. Call as soon as possible for an appointment. Return for worsening symptoms or if you develop fever, difficulty breathing, swelling to your tongue or any other concerning symptoms.
== END 2017-02-19 22:12 | disposition home or self-care (01) ==
LOC: C.EDB 19:19
DX: R09.89 Other specified symptoms and signs involving the circulatory and respiratory systems (principal); F17.210 Nicotine dependence, cigarettes, uncomplicated

== ENCOUNTER 2017-03-13 19:01 | Emergency (ER) | payer OTHER ==
[~2017-03-13] VITALS: Ht 175.3 cm; Wt 85.8 kg
[~2017-03-13 19:01] MED LIST changes: +ACET-1256 PO
[2017-03-13 19:22] VITALS: TEMP 36.9; Ht 175.3 cm; Wt 85.8 kg
[2017-03-13] MEDS ORDERED: PANT40TA PO (19:31)
[2017-03-13] MEDS ORDERED: SODIUM CHLORIDE 0.9% 1000ML 1,000 ML IV STA (19:50)
[2017-03-13] MEDS ORDERED: OPTIRAY 320 IV PRN (20:00)
--- NOTE | 2017-03-13 20:01 | EMERGENCY ROOM VISIT NOTE ---
History Report prepared by Yaima: Toya Arteaga Under the Supervision of: Dr. Nacho Roberto M.D. First contact with patient: 19:26 Chief Complaint: THROAT PAIN/INJURY Stated Complaint: THROAT FEELS LIKE ITS CLOSING History of Present Illness The patient is a 46 year old female who presents to the Emergency Room with complaints of worsening throat pain that started 2 hours ago. The patient rates her pain a 10/10 in severity. The patient is followed by GI for a history of esophageal dilation. She is also followed by ENT for a history of sinusitis. She notes that she has symptoms of ongoing difficulty swallowing and intermittent voice hoarseness and loss of voice. She states that she came in today because she was eating chicken for dinner tonight and it felt like "there was a knot in her throat that was getting larger and closing off her throat". She reports that the pain went away. She is scheduled to get her esophagus dilated. She notes that she is unable to take steroids, an inhaler, or a breathing treatment because it bothers her stomach. The patient states that she smokes 1 pack of cigarettes or less per day. The patient is experiencing a cough. She denies any nausea or vomiting. Source of History: patient Onset: 2 hours ago Position: throat Symptom Intensity: 10/10 Timing: worsening Associated Symptoms: + cough, No nausea, No vomiting Review of Systems See HPI for pertinent positives and negatives. A total of ten systems were reviewed and were otherwise negative. Past Medical & Surgical Medical Problems: (1) Bronchitis (2) Bronchopneumonia (3) DDD (degenerative disc disease), cervical Family History Patient reports no known family medical history. Social History Smoking Status: Current Every Day Smoker Alcohol Use: none Drug Use: none Marital Status: Housing Status: lives with significant other Occupation Status: unemployed Current/Historical Medications Scheduled Pantoprazole (Protonix), 40 MG PO DAILY Allergies Coded Allergies: Clavulanic Acid (Verified Adverse Reaction, Intermediate, "SEVERE GI UPSET "., 03/13/17) Amitriptyline (Verified Adverse Reaction, Mild, CHRONIC FATIGUE, 03/13/17) Ibuprofen (Verified Adverse Reaction, Mild, VOMIT, 03/13/17) Sumatriptan (Verified Adverse Reaction, Mild, HEART RACES, 03/13/17) Nortriptyline (Verified Adverse Reaction, Unknown, "WACKY/HEART RATE INCREASES", 03/13/17) Physical Exam Vital Signs Date Time Temp Pulse Resp B/P (MAP) Pulse Ox O2 Delivery O2 Flow Rate FiO2 03/13/17 23:47 69 22 149/85 97 03/13/17 22:19 69 18 120/81 96 03/13/17 21:10 70 18 126/72 95 03/13/17 20:24 Room Air 03/13/17 19:22 36.9 91 20 138/86 95 Room Air Physical Exam GENERAL: Awake, alert, not well-appearing, in no distress HENT: Normocephalic, atraumatic. Oropharynx unremarkable. Dry mucus membranes, specifically no oropharyngeal edema or erythema, no strider on osculation. EYES: Normal conjunctiva. Sclera non-icteric. NECK: Supple. No nuchal rigidity. FROM. No JVD. RESPIRATORY: Clear to auscultation. CARDIAC: Regular rate, normal rhythm. Extremities warm and well perfused. Pulses equal. ABDOMEN: Soft, non-distended. No tenderness to palpation. No rebound or guarding. No masses. RECTAL: Deferred. MUSCULOSKELETAL: Chest examination reveals no tenderness. The back is symmetrical on inspection without obvious abnormality. There is no CVA tenderness to palpation. No joint edema. LOWER EXTREMITIES: Calves are equal size bilaterally and non-tender. No edema. No discoloration. NEURO: Normal sensorium. No sensory or motor deficits noted. SKIN: No rash or jaundice noted. Medical Decision & Procedures ER Provider Diagnostic Interpretation: Radiology results as stated below per my review and radiologist interpretation: CHEST ONE VIEW PORTABLE CLINICAL HISTORY: Abdominal pain. COMPARISON STUDY: Chest radiograph February 19, 2017. FINDINGS: No lucency is identified under the hemidiaphragms to indicate pneumoperitoneum on this exam. A right cardiophrenic angle opacity is unchanged and likely reflects epicardial fat pad although a Morgagni hernia could appear similar. Lungs volumes are normal and there is no consolidation to suggest pneumonia. No pneumothorax or pleural effusion is present. Prominent vascularity is normal. IMPRESSION: No acute cardiopulmonary findings. Electronically signed by: Lincoln Gomez M.D. 03/13/2017 8:17 PM Dictated Date/Time: 03/13/2017 8:15 PM SOFT TISSUE NECK WITHOUT CLINICAL HISTORY: Dysphagia/dysphonia. COMPARISON STUDY: Neck radiographs February 19, 2017. TECHNIQUE: Axial images of the neck were obtained without IV contrast. FINDINGS: Visualized portions of the intracranial contents are unremarkable on this unenhanced examination. Mastoid air cells are clear. There is minimal mucosal thickening of the sinuses. Postoperative findings within the sinuses are noted. There is no evidence for acute sinusitis. Evaluation of the neck is suboptimal on this unenhanced exam. The epiglottis is normal. No abscess or lymphadenopathy is identified within the neck. Sensitivity for detection mucosal lesions is diminished on this exam. There is mild tonsillar hypertrophy which may result in mild airway narrowing. This is suboptimally assessed on this unenhanced exam and could be related to an expiratory study. Postoperative findings consistent with C4-C5 and C5-C6 anterior discectomy and fusion is noted. Mild paraseptal and centrilobular emphysema is noted within visualized portions of the lung apices. A few small upper lobe nodules measure up to 3 mm. No suspicious osseous lesion is present. The patient is edentulous. IMPRESSION: 1. No definite acute process within the neck although evaluation suboptimal on this unenhanced exam. 2. Suspected mild tonsillar hypertrophy which may result in mild airway narrowing. No abscess. No cervical lymphadenopathy. 3. Mild emphysema within the lung apices with a few small low suspicion pulmonary nodules. A follow-up chest CT in 6 months to ensure stability is recommended. Electronically signed by: Lincoln Gomez M.D. 03/13/2017 9:21 PM Dictated Date/Time: 03/13/2017 9:12 PM Laboratory Results 03/13/17 19:55 Red Blood Count 4.96, Mean Corpuscular Volume 90.1, Mean Corpuscular Hemoglobin 30.0, Mean Corpuscular Hemoglobin Concent 33.3, Mean Platelet Volume 10.4, Neutrophils (%) (Auto) 42.3, Lymphocytes (%) (Auto) 48.5, Monocytes (%) (Auto) 7.7, Eosinophils (%) (Auto) 0.9, Basophils (%) (Auto) 0.5, Neutrophils # (Auto) 3.29, Lymphocytes # (Auto) 3.78, Monocytes # (Auto) 0.60, Eosinophils # (Auto) 0.07, Basophils # (Auto) 0.04 03/13/17 19:55 Test 03/13/17 19:55 White Blood Count 7.79 K/uL (4.8-10.8) Red Blood Count 4.96 M/uL (4.2-5.4) Hemoglobin 14.9 g/dL (12.0-16.0) Hematocrit 44.7 % (37-47) Mean Corpuscular Volume 90.1 fL (80-100) Mean Corpuscular Hemoglobin 30.0 pg (25-34) Mean Corpuscular Hemoglobin Concent 33.3 g/dl (32-36) Platelet Count 244 K/uL (130-400) Mean Platelet Volume 10.4 fL (7.4-10.4) Neutrophils (%) (Auto) 42.3 % Lymphocytes (%) (Auto) 48.5 % Monocytes (%) (Auto) 7.7 % Eosinophils (%) (Auto) 0.9 % Basophils (%) (Auto) 0.5 % Neutrophils # (Auto) 3.29 K/uL (1.4-6.5) Lymphocytes # (Auto) 3.78 K/uL (1.2-3.4) Monocytes # (Auto) 0.60 K/uL (0.11-0.59) Eosinophils # (Auto) 0.07 K/uL (0-0.5) Basophils # (Auto) 0.04 K/uL (0-0.2) RDW Standard Deviation 42.3 fL (36.4-46.3) RDW Coefficient of Variation 12.9 % (11.5-14.5) Immature Granulocyte % (Auto) 0.1 % Immature Granulocyte # (Auto) 0.01 K/uL (0.00-0.02) Anion Gap 8.0 mmol/L (3-11) Est Creatinine Clear Calc Drug Dose 97.7 ml/min Estimated GFR () 95.9 Estimated GFR (Non- 82.8 BUN/Creatinine Ratio 13.6 (10-20) Calcium Level 9.0 mg/dl (8.5-10.1) Laboratory results reviewed by me Medications Administered Medications (Trade) Dose Ordered Sig/Mannie Route Start Time Stop Time Status Last Admin Dose Admin Sodium Chloride 1,000 ml @ 999 mls/hr Q1H1M STAT IV 03/13/17 19:50 03/13/17 20:50 DC 03/13/17 20:24 999 MLS/HR Albuterol (Ventolin Hfa Inhaler) 2 puffs NOW ONCE INH 03/13/17 22:15 03/13/17 22:16 DC 03/13/17 22:17 2 PUFFS ED Course 1925: The patient was evaluated in room B8. A complete history and physical exam was performed. 1950: Sodium Chloride 1000 ml @ 999 mls/hr IV. 2031: I reassessed the patient. She states she does not want any contrast in her CT. She also states she does not want medications. 2214: Albuterol 2 puffs INH. 2329: I reevaluated the patient. Discussed results and discharge instructions: She verbalized understanding and agreement. The patient is ready for discharge. Medical Decision I reviewed the patient's past medical history, medications, and the nursing notes as described above. Differential diagnosis includes but is not limited to: esophageal stricture, achalasia, laryngitis, PNA, bronchitis, retropharyngeal abscess, adenitis. The patient is a 46-year-old woman with a past medical history of some long- standing smoking of one pack per day, 3 of dysphagia requiring esophageal dilation, and chronic voice hoarseness over the past several months who presents to emergency department after feeling a piece of chicken stuck in her throat history of present illness. Of note, she is scheduled for an esophageal dilation and possible Laryngoscopy on Mon. 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 On arrival the patient is in no acute distress, afebrile stable vital signs. She has no tongue elevation, trismus, or pharyngeal edema or injection. No stridor on auscultation. Patient was offered nebulizer for her persistent cough however she reports that she has abdominal discomfort with this. She may she was offered steroids to help with her symptoms of laryngitis but again reports that steroids also make her have GI symptoms. Will obtain CT scan of the neck and if no emergent findings patient has appropriate follow-up tomorrow. CT neck limited 2/2 no contrast since patient was concerned she has "reactions to everything". ?mild tonsilar enlargment however patient has no stridor on exam. Patient declining steroids because she feels it makes her stomach upset. Agreed to try MDI for antitussive effect. Patient counseled smoking cessation as well as to eat only pureed foods until her procedure. Patient has scheduled f/u on Monday for endoscopy and laryngoscopy. Findings and plan for follow-up reviewed with patient. Patient agreeable and d/c'd per discharge instructions. Medication Reconcilliation Current Medication List: was personally reviewed by me Blood Pressure Screening Patient's blood pressure: Elevated blood pressure Blood pressure disposition: Elevated BP felt to be situational Impression Primary Impression: Dysphagia Additional Impression: Bronchitis Scribe Attestation The scribe's documentation has been prepared under my direction and personally reviewed by me in its entirety. I confirm that the note above accurately reflects all work, treatment, procedures, and medical decision making performed by me. Departure Information Dispostion Home / Self-Care Referrals Elizabet Hastings C.R.N.P. (PCP) Patient Instructions Bronchitis Acute, Dysphagia, My [facility] Additional Instructions Please follow up with your GI specialist on Monday for re-evaluation and for your scheduled procedure. Otherwise, your exam, chest xray, CT scan, and lab results did not show signs of an emergent condition at this time. Use inhaler every 4 hours for the next 48 hours and then as needed every four hours thereafter. Return to the emergency department for worsening symptoms as described in the accompanying instructions. Problem Qualifiers
[2017-03-13 20:14] LABS: BASO % 0.5 %; BASO ABS # 0.04 K/uL (0-0.2); COMPLETE YES; EOS % 0.9 %; HEMATOCRIT 44.7 % (37-47); IG% 0.1 %; LYMPH % 48.5 %; LYMPH ABS # 3.78 K/uL (1.2-3.4); MEAN CELL VOLUME 90.1 fL (80-100); MEAN CORPUSCULAR HGB CONC 33.3 g/dl (32-36); MEAN PLATELET VOLUME 10.4 fL (7.4-10.4); MONO % 7.7 %; NEUT % 42.3 %; PLATELET COUNT 244 K/uL (130-400); RED BLOOD COUNT 4.96 M/uL (4.2-5.4); WHITE BLOOD COUNT 7.79 K/uL (4.8-10.8)
--- NOTE | 2017-03-13 20:18 | DIAGNOSTIC IMAGING REPORT ---
CHEST ONE VIEW PORTABLE CLINICAL HISTORY: Abdominal pain. COMPARISON STUDY: Chest radiograph February 19, 2017. FINDINGS: No lucency is identified under the hemidiaphragms to indicate pneumoperitoneum on this exam. A right cardiophrenic angle opacity is unchanged and likely reflects epicardial fat pad although a Morgagni hernia could appear similar. Lungs volumes are normal and there is no consolidation to suggest pneumonia. No pneumothorax or pleural effusion is present. Prominent vascularity is normal. IMPRESSION: No acute cardiopulmonary findings. Electronically signed by: Lincoln Gomez M.D. 03/13/2017 8:17 PM Dictated Date/Time: 03/13/2017 8:15 PM
[2017-03-13 20:36] LABS: BUN/CREATININE RATIO 13.6 (10-20); CREATININE 0.85 mg/dl (0.60-1.20)
--- NOTE | 2017-03-13 21:22 | DIAGNOSTIC IMAGING REPORT ---
SOFT TISSUE NECK WITHOUT CLINICAL HISTORY: Dysphagia/dysphonia. COMPARISON STUDY: Neck radiographs February 19, 2017. TECHNIQUE: Axial images of the neck were obtained without IV contrast. FINDINGS: Visualized portions of the intracranial contents are unremarkable on this unenhanced examination. Mastoid air cells are clear. There is minimal mucosal thickening of the sinuses. Postoperative findings within the sinuses are noted. There is no evidence for acute sinusitis. Evaluation of the neck is suboptimal on this unenhanced exam. The epiglottis is normal. No abscess or lymphadenopathy is identified within the neck. Sensitivity for detection mucosal lesions is diminished on this exam. There is mild tonsillar hypertrophy which may result in mild airway narrowing. This is suboptimally assessed on this unenhanced exam and could be related to an expiratory study. Postoperative findings consistent with C4-C5 and C5-C6 anterior discectomy and fusion is noted. Mild paraseptal and centrilobular emphysema is noted within visualized portions of the lung apices. A few small upper lobe nodules measure up to 3 mm. No suspicious osseous lesion is present. The patient is edentulous. IMPRESSION: 1. No definite acute process within the neck although evaluation suboptimal on this unenhanced exam. 2. Suspected mild tonsillar hypertrophy which may result in mild airway narrowing. No abscess. No cervical lymphadenopathy. 3. Mild emphysema within the lung apices with a few small low suspicion pulmonary nodules. A follow-up chest CT in 6 months to ensure stability is recommended. Electronically signed by: Lincoln Gomez M.D. 03/13/2017 9:21 PM Dictated Date/Time: 03/13/2017 9:12 PM
[2017-03-13] MEDS ORDERED: ALBUTEROL HFA 8 GM INHALER INH ONE (22:15)
[2017-03-13 23:47] VITALS: BP 149/85; PULSE 69; O2SAT 97
[2017-03-14] MEDS ORDERED: VNTHFA/IN INH (08:48)
== END 2017-03-13 23:48 | disposition home or self-care (01) ==
LOC: C.EDB 19:02
DX: R13.10 Dysphagia, unspecified (principal); J40 Bronchitis, not specified as acute or chronic; M50.30 Other cervical disc degeneration, unspecified cervical region; F17.210 Nicotine dependence, cigarettes, uncomplicated; Z79.899 Other long term (current) drug therapy

== ENCOUNTER → 2017-07-06 | Outpatient (CLI) | payer OTHER ==
[~2017-07-06] MED LIST changes: -ACET-1256 PO; -AMOX500T3 PO; +VNTHFA/IN INH
--- NOTE | 2017-07-06 14:08 | DIAGNOSTIC IMAGING REPORT ---
MRI THORACIC SPINE WITHOUT CLINICAL HISTORY: Thoracic spine pain. Radiculopathy. PRIOR STUDIES: None TECHNIQUE: MR scanning of the thoracic spine was performed using multiple pulse sequences. No gadolinium was administered. FINDINGS: There are focal fatty rests/hemangiomas at the T9, T10, and L1 levels. No thoracic disc herniations are visualized. There is a minor disc bulge the T10-11 level, and T7-8 level. There is no significant spinal stenosis. No cord lesions are visualized. IMPRESSION: 1. No thoracic disc herniations identified 2. No evidence of spinal stenosis 3. No cord lesions identified 4. Focal fatty rests/hemangiomas at the T9, T10, and L1 levels Electronically signed by: Varinder Avelar M.D. 07/06/2017 2:06 PM Dictated Date/Time: 07/06/2017 2:00 PM
--- NOTE | 2017-07-06 14:27 | DIAGNOSTIC IMAGING REPORT ---
(CHEST) THORAX WITHOUT CT DOSE: 483.29 mGy.cm HISTORY: THORACIC SPINE PAIN,MASS OR LUMP FOR CT CHEST TECHNIQUE: Multiaxial CT images of the chest were performed without contrast. A dose lowering technique was utilized adhering to the principles of ALARA. COMPARISON: Thoracic spine MRI 07/06/2017. Neck CT 03/13/2017. FINDINGS: No suspicious lytic or blastic osseous lesions within the visualized chest. No paraspinal masses identified. A few old, healed right-sided rib fractures. No acute fractures identified within the thoracic spine. Partially visualized cervical spine fusion hardware. Mild degenerative disc disease within the mid thoracic spine. No significant mediastinal or hilar lymphadenopathy. Small hiatus hernia. Normal caliber thoracic aorta. The heart is normal in size. No pleural or pericardial effusions. Hepatic steatosis. The unenhanced spleen and adrenal glands are unremarkable. A 7 mm exophytic hypodense lesion within the left kidney. This is too small to characterize but favors a cyst. The central airways are patent. No pneumothorax. Linear density at the right middle lobe consistent with scarring. No focal lung consolidations to suggest pneumonia. Minimal emphysema. Stable 3 mm nodular density within the right lung apex on image 49. Stable 3 mm subpleural nodule within the right lung apex on image 59. Stable 3 mm nodule within the left lung apex on image 58. Mild emphysema. IMPRESSION: 1. Stable tiny nodular densities within the lung apices. These are likely benign. One-year chest CT follow can be performed to ensure stability. 2. Minimal emphysema. 3. No suspicious lytic or blastic osseous lesions within the thoracic spine. No paraspinal masses identified. 4. Mild emphysema. Electronically signed by: Juan Miguel Steinberg M.D. 07/06/2017 2:26 PM Dictated Date/Time: 07/06/2017 2:16 PM
== END | disposition home or self-care (01) ==
LOC: C.MRI 12:43
PROVIDERS: ATTEND Orthopaedic Surgery Orthopaedic Surgery of the Spine
DX: R22.9 Localized swelling, mass and lump, unspecified (principal); M54.6 Pain in thoracic spine

== ENCOUNTER → 2017-08-23 | Outpatient (CLI) | payer OTHER ==
[~2017-08-23] MED LIST changes: +GADAVIST IV PRN
--- NOTE | 2017-08-23 10:33 | DIAGNOSTIC IMAGING REPORT ---
CERVICAL SPINE COMBO CLINICAL HISTORY: 47 years-old Female presenting with CERVICAL SPINE PAIN, tingling in the bilateral arms and face, history of surgery, headaches. TECHNIQUE: Multisequence, multiplanar MR imaging of the cervical spine was performed before and after the administration of intravenous contrast. IV contrast: 8.5 mL of Gadavist. COMPARISON: CT from 02/15/2017 and MR from 05/12/2016. FINDINGS: Localizer images: Anterior cervical discectomy and fusion of C4-C6. Normal cervical lordosis. Postsurgical changes of anterior cervical discectomy and fusion of C4-C6. Vertebral bodies maintain normal height, alignment, and bone marrow signal intensity with the exception of a benign hemangioma in the T1 vertebral body and an indeterminant T2 hyperintense lesion in the C7 vertebral body. This was minimally present in 2016 and may represent a fat poor hemangioma. These lesions demonstrate minimal enhancement. Intervertebral discs demonstrate mild desiccation diffusely. Degenerative changes detailed below: C2-3: No significant neural foraminal or spinal canal stenosis. C3-4: Disc osteophyte complex minimally effaces the ventral thecal sac. No significant neural foraminal narrowing. C4-5: Uncovertebral hypertrophy results in moderate right and mild left neural foraminal narrowing. C5-6: Disc osteophyte complex/uncovertebral hypertrophy results in moderate bilateral neural foraminal narrowing. C6-7: Minimal disc osteophyte complex without significant neural foraminal or spinal canal narrowing. C7-T1:. Central disc osteophyte protrusion with resultant left paracentral effacement of the ventral thecal sac. This minimally contours the spinal cord at this level (series 6 image 123). No significant neural foraminal narrowing. Cervical spinal cord maintains normal morphology and signal intensity throughout. Craniocervical junction normal. Upper thoracic spinal cord normal. No paraspinal edema. No suspicious enhancement on postcontrast imaging. IMPRESSION: 1. Postsurgical changes of anterior cervical discectomy and fusion of C4-C6. 2. Multilevel degenerative changes with very degrees of neural foraminal narrowing most significant at C4-5 and C5-6. No significant spinal canal stenosis. Electronically signed by: Holden Yan M.D. 08/23/2017 10:31 AM Dictated Date/Time: 08/23/2017 10:10 AM
== END | disposition home or self-care (01) ==
LOC: C.MRI 09:20
PROVIDERS: ATTEND Orthopaedic Surgery Orthopaedic Surgery of the Spine
DX: M47.892 Other spondylosis, cervical region (principal)